=== PATIENT | male | born 1955 | race Caucasian/White ===

== ENCOUNTER 2024-01-18 23:38 | Observation (INO) ==
--- NOTE | 2024-01-18 23:59 | Emergency Department Note ---
History of Present Illness General Chief Complaint: Cardiac Assessment Stated Complaint: TIGHTNESS IN CHEST,IRREGULAR HEARTBEAT Time Seen by Provider: 01/18/24 23:47 History of Present Illness Provider Complaint: chest pain Onset (ago): day(s) 2 Duration: intermittent and improved Onset: during exertion Pain Location: substernal Pain Radiation: none Severity: mild Maximum Pain Intensity: 2 Current Pain Intensity: 0 Quality: + tightness Relieved By: + rest Exacerbated By: + exertion Context: no recent illness, no recent surgery, no recent immobilization, no recent travel, no trauma/injury or no new medications Associated symptoms: + palpitations; no vomiting, no dyspnea, no fever, no cough or no leg swelling Home Medications Medication Instructions Recorded Confirmed Type Calcium (Caltrate) ##0 02/17/06 History Ergocalciferol (Vitamin D Cap) ##0 02/17/06 History Fish Oil (Gleason-3) ##0 02/17/06 History GARLIC PILL ##0 02/17/06 History Allergies Allergy/AdvReac Type Severity Reaction Status Date / Time salicylates Allergy Intermediate UNKNOWN Verified 11/21/10 14:38 azithromycin Allergy Unknown Unknown Verified 03/15/19 14:47 acetaminophen AdvReac Intermediate UNKNOWN Verified 11/21/10 14:38 Past Med/Surg History Problem List (Updated 01/19/24 @ 01:02 by Kye Gallardo MD) Chest pain (Acute) Medical History Symptomatic PVCs Palpitations Hypertension Surgical History No pertinent past surgical history Family History Other Family history non-contributory Social History Smoking Status: Never smoker Preferred Language: Estonian Feels Safe at Home: Yes Physical Exam Vital Signs Vital Signs - 24 hr 01/18/24 23:41 01/18/24 23:50 01/18/24 23:51 Temperature 36.5 C Temperature Source Temporal Artery Scan Pulse Rate 84 80 Pulse Rate [Apical] 78 Respiratory Rate 16 20 20 Respiratory Effort / Characteristics Non-Labored Spontaneous Non-Labored Spontaneous Respiratory Depth Normal Normal Respiratory Pattern Regular Blood Pressure 176/95 H Blood Pressure [Right Arm] 160/102 H Blood Pressure Mean 122 Blood Pressure Mean [Right Arm] 121 Blood Pressure Position Sitting Pulse Oximetry 97 97 98 Oxygen Delivery Method Room Air Room Air Room Air Sepsis Recent Fever Within 48 Hours No Sepsis New/Unexplained Change in Mental Status N/A Sepsis Action Taken by Nursing No Action Required 01/18/24 23:55 01/19/24 00:57 Temperature Temperature Source Pulse Rate 75 Pulse Rate [Apical] 69 Respiratory Rate 16 Respiratory Effort / Characteristics Respiratory Depth Respiratory Pattern Blood Pressure Blood Pressure [Right Arm] 162/91 H Blood Pressure Mean Blood Pressure Mean [Right Arm] 114 Blood Pressure Position Pulse Oximetry 94 Oxygen Delivery Method Room Air Sepsis Recent Fever Within 48 Hours Sepsis New/Unexplained Change in Mental Status Sepsis Action Taken by Nursing Physical Exam GENERAL: oriented to person, place, and time. appears well-developed and well- nourished. HENT: Exam performed. - Head: Normocephalic and atraumatic. EYES: Conjunctivae and EOM are normal. Right eye exhibits no discharge. Left eye exhibits no discharge. No scleral icterus. NECK: Normal range of motion. Neck supple. No JVD present. CV: Normal rate, regular rhythm, normal heart sounds and intact distal pulses. There is no peripheral edema. Palpable radial pulses bue. PULM/CHEST: Effort normal and breath sounds normal. No respiratory distress. No stridor. no wheezes. no rales. ABD: The abdomen is soft. There is no tenderness. NEURO: Motor and sensation grossly intact. SKIN: Skin is warm and dry. He is not diaphoretic. PSYCH: normal mood and affect. Behavior is normal. Judgment and thought content normal. Course Course 2347: The patient was evaluated in room B9. A complete history and physical exam was performed Cardiac monitoring: An order was placed for continuous cardiac monitoring. The monitor shows a rate of 80 with sinus rhythm interpreted by me 0059: Vital signs stable. Labs and imaging are unremarkable. Patient will be admitted for chest pain rule out ACS. Patient mated to the [facility]ist team. Medical Decision Making Laboratory Data Attestation: I reviewed the patient's lab results. 01/18/24 23:52 01/18/24 23:52 Labs: Lab Results 01/18/24 Range/Units 23:52 WBC 6.66 (4.8-10.8) K/ul RBC 5.61 (4.70-6.10) M/uL Hgb 17.1 (14.0-18.0) g/dl Hct 49.8 (42.0-52.0) % MCV 88.8 (80.0-100.0) fL MCH 30.5 (25.0-34.0) pg MCHC 34.3 (32.0-36.0) g/dL RDW Std Deviation 39.8 (36.4-46.3) fL RDW Coeff of Kassandra 12.3 (11.5-14.5) % Plt Count 170 (130-400) K/uL MPV 10.6 (9.4-12.4) fL Immature Gran % (Auto) 0.5 % Neut % (Auto) 38.7 % Lymph % (Auto) 49.8 % [place] % (Auto) 7.8 % Eos % (Auto) 2.7 % Baso % (Auto) 0.5 % Neut # (Auto) 2.58 (1.40-6.50) K/uL Lymph # (Auto) 3.32 (1.20-3.40) K/uL [place] # (Auto) 0.52 (0.11-0.59) K/uL Eos # (Auto) 0.18 (0.00-0.50) K/uL Baso # (Auto) 0.03 (0.00-0.20) K/uL Immature Gran # (Auto) 0.03 (0.01-0.20) K/uL PT 10.7 (9.0-12.0) Seconds INR 1.0 (0.9-1.1) APTT 27 (21-31) Seconds PTT Ratio 1.0 Sodium 140 (136-145) mmol/L Potassium 3.4 L (3.5-5.1) mmol/L Chloride 101 (98-107) mmol/L Carbon Dioxide 27 (21-32) mmol/L Anion Gap 12 H (3-11) BUN 19 (6-23) mg/dl Creatinine 0.94 (0.6-1.4) mg/dl Est Cr Clr Drug Dosing 77.9 ml/min eGFR 87.21 BUN/Creatinine Ratio 20.2 H (10-20) Glucose 120 H (70-99(Fasting)) mg/dl Calcium 9.7 (8.6-10.3) mg/dl Troponin I High Sens 12.8 (0-20) pg/ml Lipase 20 (11-82) U/L Imaging Data Chest x-ray: Attestation: I personally reviewed and interpreted this imaging study as follows: My impression: Chest x-ray negative. Airway clear. No pneumothorax. No consolidation. No cardiomegaly or cephalization.. No free air under the diaphragm. No fractures of the skeletal structures. ECG Data Attestation: I personally reviewed and interpreted this ECG as follows: Additional Comments: EKG #1 at 2348: Sinus rhythm with a rate of 78. AL QRS and QTc intervals within normal limits. No ST elevation or ST depression. Baseline wander and artifact. EKG #2 at 2355: Sinus rhythm with rate of 74. AL QRS and QTc intervals are within normal limits. No ST elevation or ST depression. MDM Narrative 2347: The patient was evaluated in room B9. A complete history and physical exam was performed Cardiac monitoring: An order was placed for continuous cardiac monitoring. The monitor shows a rate of 80 with sinus rhythm interpreted by me 0059: Vital signs stable. Labs and imaging are unremarkable. Patient will be admitted for chest pain rule out ACS. Patient mated to the [facility] hospitalist team. Impression & Plan Chest pain Discharge Plan Visit Data Chief Complaint: Cardiac Assessment Stated Complaint: TIGHTNESS IN CHEST,IRREGULAR HEARTBEAT ED Provider: Kye Gallardo Discharge Problem: Chest pain Patient Disposition: Being Evaluated by Hospitalist Forms Stand Alone Forms: My [facility] Prescriptions Prescriptions: No Action Fish Oil (Gleason-3) 1 EA capsule Qty: 0 GARLIC PILL Qty: 0 Calcium (Caltrate) 600 MG tablet Qty: 0 Ergocalciferol (Vitamin D Cap) 50,000 INTERUNIT capsule Qty: 0 Referrals Referrals: Michele Alfonso DO [Primary Care Provider] - Discharge Problem: Chest pain Qualifiers: Chest pain type: unspecified Qualified Code(s): R07.9 - Chest pain, unspecified
[2024-01-19 00:07] LABS: Basophils # (auto) 0.03 K/uL (0.00-0.20); Basophils % (auto) 0.5 %; Eosinophils # (auto) 0.18 K/uL (0.00-0.50); Eosinophils % (auto) 2.7 %; Hematocrit (blood only) 49.8 % (42.0-52.0); Hemoglobin 17.1 g/dl (14.0-18.0); Immature Granulocytes # (auto) 0.03 K/uL (0.01-0.20); Immature Granulocytes % (auto) 0.5 %; Lymphocytes # (auto) 3.32 K/uL (1.20-3.40); Lymphocytes % (auto) 49.8 %; Mean Corpuscular Hemoglobin 30.5 pg (25.0-34.0); Mean Corpuscular Hgb Conc 34.3 g/dL (32.0-36.0); Mean Corpuscular Volume 88.8 fL (80.0-100.0); Mean Platelet Volume 10.6 fL (9.4-12.4); Monocytes # (auto) 0.52 K/uL (0.11-0.59); Monocytes % (auto) 7.8 %; Neutrophils # (auto) 2.58 K/uL (1.40-6.50); Neutrophils % (auto) 38.7 %; Platelet Count 170 K/uL (130-400); RDW Coefficient of Variation 12.3 % (11.5-14.5); RDW Standard Deviation 39.8 fL (36.4-46.3); Red Blood Count 5.61 M/uL (4.70-6.10); White Blood Count 6.66 K/ul (4.8-10.8)
[2024-01-19 00:24] LABS: BUN Creatinine Ratio 20.2 (10-20); Calcium 9.7 mg/dl (8.6-10.3); Creatinine Clr Calc Pharmacy 77.9 ml/min; Potassium 3.4 mmol/L (3.5-5.1)
[2024-01-19 00:31] LABS: Troponin I High Sensitivity 12.8 pg/ml (0-20)
[2024-01-19 00:45] LABS: Partial Thromboplastin Time 27 Seconds (21-31); Prothrombin Time 10.7 Seconds (9.0-12.0)
--- NOTE | 2024-01-19 04:43 | History & Physical Report ---
Date of Service January 19, 2024 Assessment & Plan (1) Chest pain: Plan: 68-year-old male with past medical history significant for hypertension, symptomatic PVCs, history of prostate cancer comes in because of chest pressure. Patient noticed chest pressure while he was playing golf around 5 PM. No radiation. No shortness. No headache. No dizziness. No blurred vision. No runny nose or sore throat. No cough. No nausea. No abdominal pain. Normal bowel and bladder movements. Patient says he has PVCs and currently he having them and feeling them. Still have some pressure in the chest. He was weird feeling in the chest for last couple of days . Patient states he ambulates 2 to 5 miles every day. Currently hemodynamics are okay. Chest pain Initial workup unremarkable Will keep him n.p.o. Serial cardiac enzymes and echo Telemetry Consult cardiology in a.m. for further recommendations Symptomatic PVCs On metoprolol Follow echo Monitor Hypertension On losartan and metoprolol and amlodipine Will monitor Hypothyroidism On Synthyroid Will follow TSH History of prostate cancer S/p SBRT DVT prophylaxis SCDs Disposition Observation med/telemetry Full code History of Present Illness Chief Complaint: Chest pain Primary Care Provider: Michele Alfonso DO 68-year-old male with past medical history significant for hypertension, symptomatic PVCs, history of prostate cancer comes in because of chest pressure. Patient noticed chest pressure while he was playing golf around 5 PM. No radiation. No shortness. No headache. No dizziness. No blurred vision. No runny nose or sore throat. No cough. No nausea. No abdominal pain. Normal bowel and bladder movements. Patient says he has PVCs and currently he having them and feeling them. Still have some pressure in the chest. He was weird feeling in the chest for last couple of days . Patient states he ambulates 2 to 5 miles every day. Currently hemodynamics are okay. Past medical history. As mentioned above Past surgical history. Colonoscopy. Bilateral cataracts removed. Bilateral inguinal hernia repair. Social history. . No smoking. No alcohol use. No drug use. Family history. Mother had lung cancer. Father had COPD. Paternal grandmother had coronary disease. Liver disease. Maternal grandfather had heart attack. Kidney cancer. Maternal grandmother had heart failure. Allergies Allergy/AdvReac Type Severity Reaction Status Date / Time salicylates Allergy Intermediate UNKNOWN Verified 11/21/10 14:38 azithromycin Allergy Unknown Unknown Verified 03/15/19 14:47 acetaminophen AdvReac Intermediate UNKNOWN Verified 11/21/10 14:38 Home Medications Medication Instructions Recorded Confirmed Type Men's 50 Plus Multivitamin 1 tab PO HS 01/19/24 01/19/24 History amlodipine 5 mg tablet 5 mg PO BID 01/19/24 01/19/24 History levothyroxine 75 mcg tablet 75 mcg PO QAM 01/19/24 01/19/24 History losartan 100 mg tablet 100 mg PO QAM 01/19/24 01/19/24 History metoprolol succinate 100 mg 100 mg PO BID 01/19/24 01/19/24 History tablet,extended release 24 hr Past Med/Surg History Problem List (Updated 01/19/24 @ 01:02 by Kye Gallardo MD) Chest pain (Acute) Medical History Symptomatic PVCs Palpitations Hypertension Surgical History No pertinent past surgical history Family History Other Family history non-contributory Social History Smoking Status: Never smoker Hx Alcohol Use: No Hx Substance Use: No Preferred Language: Mongolian Communication Ability: Effective Beliefs That Will Affect Care: None Current Living Situation: Spouse Feels Safe at Home: Yes Safety Concerns: Feels Safe At This Time Assistive Devices: Glasses Review of Systems Review of Systems: All systems reviewed & are unremarkable except as noted in HPI & below Physical Exam Physical Exam: General- Not in distress Head- atraumatic Eyes- PERRL. ENT- oropharynx clear Neck- supple, no JVD. Lungs- clear to auscultation no wheezing or crackles Heart- regular rate and rhythm; no murmur, no gallop. Abdomen- normal bowel sounds, soft, nontender, no distension Extremities- no pretibial edema, no erythema seen Neuro- alert, oriented PERRL, no facial palsy; no dysarthria; moves extremities Results & Data Results & Data Vital Signs (Past 12 Hours) Vital Signs Temp Pulse Pulse Resp BP BP Pulse Ox 01/19/24 04:13 60 01/19/24 02:00 65 14 149/87 H 97 01/19/24 00:57 69 16 162/91 H 94 01/18/24 23:55 75 01/18/24 23:51 78 20 160/102 H 98 01/18/24 23:50 80 20 97 01/18/24 23:41 36.5 C 84 16 176/95 H 97 O2 Del Method 01/19/24 04:13 01/19/24 02:00 Room Air 01/19/24 00:57 Room Air 01/18/24 23:55 01/18/24 23:51 Room Air 01/18/24 23:50 Room Air 01/18/24 23:41 Room Air Diagnostic Findings Laboratory Results WBC 6.66 K/ul (4.8-10.8) 01/18/24 23:52 RBC 5.61 M/uL (4.70-6.10) 01/18/24 23:52 Hgb 17.1 g/dl (14.0-18.0) 01/18/24 23:52 Hct 49.8 % (42.0-52.0) 01/18/24 23:52 MCV 88.8 fL (80.0-100.0) 01/18/24 23:52 MCH 30.5 pg (25.0-34.0) 01/18/24 23:52 MCHC 34.3 g/dL (32.0-36.0) 01/18/24 23:52 RDW Std Deviation 39.8 fL (36.4-46.3) 01/18/24 23:52 RDW Coeff of Kassandra 12.3 % (11.5-14.5) 01/18/24 23:52 Plt Count 170 K/uL (130-400) 01/18/24 23:52 MPV 10.6 fL (9.4-12.4) 01/18/24 23:52 Immature Gran % (Auto) 0.5 % 01/18/24 23:52 Neut % (Auto) 38.7 % 01/18/24 23:52 Lymph % (Auto) 49.8 % 01/18/24 23:52 [place] % (Auto) 7.8 % 01/18/24 23:52 Eos % (Auto) 2.7 % 01/18/24 23:52 Baso % (Auto) 0.5 % 01/18/24 23:52 Neut # (Auto) 2.58 K/uL (1.40-6.50) 01/18/24 23:52 Lymph # (Auto) 3.32 K/uL (1.20-3.40) 01/18/24 23:52 [place] # (Auto) 0.52 K/uL (0.11-0.59) 01/18/24 23:52 Eos # (Auto) 0.18 K/uL (0.00-0.50) 01/18/24 23:52 Baso # (Auto) 0.03 K/uL (0.00-0.20) 01/18/24 23:52 Immature Gran # (Auto) 0.03 K/uL (0.01-0.20) 01/18/24 23:52 PT 10.7 Seconds (9.0-12.0) 01/18/24 23:52 INR 1.0 (0.9-1.1) 01/18/24 23:52 APTT 27 Seconds (21-31) 01/18/24 23:52 PTT Ratio 1.0 01/18/24 23:52 Sodium 140 mmol/L (136-145) 01/18/24 23:52 Potassium 3.4 mmol/L (3.5-5.1) L 01/18/24 23:52 Chloride 101 mmol/L (98-107) 01/18/24 23:52 Carbon Dioxide 27 mmol/L (21-32) 01/18/24 23:52 Anion Gap 12 (3-11) H 01/18/24 23:52 BUN 19 mg/dl (6-23) 01/18/24 23:52 Creatinine 0.94 mg/dl (0.6-1.4) 01/18/24 23:52 Est Cr Clr Drug Dosing 77.9 ml/min 01/18/24 23:52 eGFR 87.21 01/18/24 23:52 BUN/Creatinine Ratio 20.2 (10-20) H 01/18/24 23:52 Glucose 120 mg/dl (70-99(Fasting)) H 01/18/24 23:52 Calcium 9.7 mg/dl (8.6-10.3) 01/18/24 23:52 Troponin I High Sens 12.8 pg/ml (0-20) 01/18/24 23:52 Lipase 20 U/L (11-82) 01/18/24 23:52 ECG Additional Comments: ECG. Normal sinus rhythm at a rate of 74. Left axis deviation. No significant change was found. QTc 470. Code Status & VTE Plan VTE Prophylaxis Plan VTE Prophylaxis will be ordered: Yes (1) Chest pain Chest pain type: unspecified Qualified Code(s): R07.9 - Chest pain, unspecified
[2024-01-19] MEDS ORDERED: NITROGLYCERIN SL 0.4 MG/TAB TAB SL PRN (05:44)
[2024-01-19] MEDS ORDERED: ACETAMINOPHEN 325 MG TAB PO PRN (05:44)
[2024-01-19] MEDS ORDERED: POLYETHYLENE (MIRALAX) 17 GM PACK PO PRN (05:44)
[2024-01-19] MEDS: LEVOTHYROXINE SODIUM 75 MCG TABLET PO SCH (06:03)
[2024-01-19] MEDS ORDERED: Nursing to Pharmacy Communication SCH (06:15)
[2024-01-19] MEDS: POTASSIUM CHLORIDE CRTAB 20 MEQ TABCR PO STA (06:33)
--- NOTE | 2024-01-19 06:51 | XRay Report ---
XR chest 2V PA/lateral CLINICAL HISTORY: Chest pain, nonspecific TECHNIQUE: 2 views of the chest were obtained. Comparison: Comparison is made to chest radiograph 04/08/2022 FINDINGS: No lines and tubes are seen. The cardiomediastinal silhouette is normal. The lungs are clear. No evid ence of pleural effusion or pneumothorax. IMPRESSION: No acute chest disease. ACT 112: Negative or not required by law. Electronically signed by: Gildardo Ortiz M.D. 01/19/2024 6:50 AM
[2024-01-19 07:31] LABS: Basophils # (auto) 0.03 K/uL (0.00-0.20); Basophils % (auto) 0.6 %; Eosinophils # (auto) 0.13 K/uL (0.00-0.50); Eosinophils % (auto) 2.5 %; Hematocrit (blood only) 43.7 % (42.0-52.0); Hemoglobin 15.6 g/dl (14.0-18.0); Immature Granulocytes # (auto) 0.02 K/uL (0.01-0.20); Immature Granulocytes % (auto) 0.4 %; Lymphocytes # (auto) 1.45 K/uL (1.20-3.40); Lymphocytes % (auto) 27.7 %; Mean Corpuscular Hgb Conc 35.7 g/dL (32.0-36.0); Mean Corpuscular Volume 86.7 fL (80.0-100.0); Mean Platelet Volume 10.5 fL (9.4-12.4); Monocytes % (auto) 11.5 %; Neutrophils # (auto) 3.01 K/uL (1.40-6.50); Neutrophils % (auto) 57.3 %; Platelet Count 147 K/uL (130-400); RDW Coefficient of Variation 12.2 % (11.5-14.5); RDW Standard Deviation 38.7 fL (36.4-46.3); Red Blood Count 5.04 M/uL (4.70-6.10); White Blood Count 5.24 K/ul (4.8-10.8)
[2024-01-19 07:45] LABS: BUN Creatinine Ratio 18.8 (10-20); Calcium 8.8 mg/dl (8.6-10.3); Creatinine Clr Calc Pharmacy 91.5 ml/min; Magnesium 2.2 mg/dl (1.7-2.4); Potassium 3.8 mmol/L (3.5-5.1)
[2024-01-19 07:52] LABS: Troponin I High Sensitivity 20.6 pg/ml (0-20)
--- NOTE | 2024-01-19 08:11 | Electrocardiogram Report ---
Test Reason : Blood Pressure : */* mmHG Vent. Rate : 78 BPM Atrial Rate : 78 BPM P-R Int : 166 ms QRS Dur : 96 ms QT Int : 412 ms P-R-T Axes : 68 -32 47 degrees QTcB Int : 469 ms Normal sinus rhythm Left axis deviation Diffuse Minor Nonspecific T wave abnormality Abnormal ECG When compared with ECG of 07-Apr-2022 20:41, No significant change Confirmed by Tyler Candelario ([id number]) on 01/19/2024 8:10:31 AM Referred By: REFERRED SELF Confirmed By: Tyler Candelario
[2024-01-19] MEDS: METOPROLOL SUCC 50MG EXT REL TAB PO SCH (08:55)
[2024-01-19] MEDS: LOSARTAN POTASSIUM 50 MG TAB PO SCH (08:55)
[2024-01-19] MEDS: amLODIPine BESYLATE 5 MG TAB PO SCH (08:55)
[2024-01-19] MEDS ORDERED: PNEUMOCOCCAL VACCINE (PCV20) 20-VAL CONJ-DIP CRM/PF 0.5 ML SYR IM ONE (09:00)
[2024-01-19] MEDS ORDERED: INFLUENZA VACC TS2024-25(65y+)/PF (IIV3) 0.5mL Syr IM ONE (09:00)
--- OUTSIDE RECORDS SUMMARY | 2024-01-19 09:51 | External Medical Summary | Summary of Care ---
Author Name Unknown Organization [facility] Address [address] [place] [address] Phone [phone] Care Team Providers Care Wireless Manager Name Role Phone Michele Alfonso DO Primary Care Provider Reason for Visit * Reason Comments Return Visit Pt here for 6 mo ret urn, has some concerns today. Encounter Details Date Type Department Care Team (Late st Contact Info) Description 11/16/2023 10:20 AM EDT Office Visit Family Practice [facility] [address] [place] [address] Michele Alfonso DO [address] [facility] [address] HTN, goal below 130/80*; Mixed dyslipidemia; Prediabetes; Acquired hypothyroidism; Change in stool; History of prostate cancer Allergies Active Allergy Reactions Criticality Noted Date Comments Azithromycin 03/27/1999 rash Sulfamethoxazole-Trimethoprim Rash Medium 2014 Rash on day #2 documented as of this encounter (statuses as of 11/16/2023) Medications Medication Sig Dispensed Refills Start Date End Date Status Multi Vitamin Daily Oral Tablet Take by mouth 1 Tablet daily . Active Losartan Potassium 100 MG Oral Tablet (Cozaar) Take 1 Tablet by mouth in the morning. 90 Tablet 3 10/25/2023 Active amLODIPine Besylate 5 MG Oral Tablet (Norvasc) TAKE 1 TABLET by mouth TWICE A DAY 180 Tablet 1 10/25/2023 Active Metoprolol Succinate ER 100 MG Oral Tablet Extended Release 24 Hour (toPROL XL)Indications:HTN, goal below 140/90 TAKE 1 TABLET IN THE MORNING AND 1 TABLET BEFORE BEDTIME 180 Tablet 1 10/25/2023 Active Levothyroxine Sodium 75 MCG Oral Tablet (Levoxyl)Indication s:Mixed dyslipidemia,Acquir ed hypothyroidism Take 1 Tablet by mouth in the morning. (at least 30 min prior to breakfast or other meds). 30 Tablet 11 11/16/2023 Active Levothyroxine Sodium 50 MCG Oral Tablet (Levoxyl)Indication s:Subclinical hypothyroidism TAKE 1 TABLET by mouth DAILY FIRST THING IN THE MORNING AT LEAST 30 MINUTES PRIOR TO BREAKFAST OR OTHER MEDS 90 Tablet 1 10/25/2023 11/16/19 24 Discontinued documented as of this encounter (statuses as of 11/16/2023) Active Problems Problem Noted Date Diagnosed Date Monoallelic mutation of PALB2 gene 02/12/2022 Overview: pathogenic PALB2 gene variant (c.3116del p.([id number]*2)) detected via [employer]. Increased risk for PALB2-associated cancer risk (breast, pancreatic cancers). Please click the link below into your browser for a brief summary of current clinical management recommendations for PALB2 - associated cancer risk PALB2 Symptomatic PVCs 04/21/2021 HTN, goal below 130/80 12/24/2016 History of prostate cancer 05/15/2014 documented as of this encounter (statuses as of 11/16/2023) Resolved Problems Problem Noted Date Diagnosed Date Resolved Date Mixed dyslipidemia 11/13/2020 2 Piriformis syndrome of left side 11/13/2020 04/21/2021 Prediabetes 05/18/2017 04/21/2021 Overview: Per Prediabetes protocol #1 Elevated prostate specific antigen (PSA) 05/15/2014 12/24/2016 Hirsutism 06/29/2012 12/24/2016 Brow ptosis 10/27/2011 12/24/2016 Dermatochalasis 10/27/2011 12/24/2016 Retinal tear 06/30/2011 12/24/2016 Dermatitis 05/20/2010 12/24/2016 Acute pharyngitis 05/20/2010 10/16/2013 ADVANCE DIRECTIVE INFORMATION 09/30/2005 01/03/2018 Overview: Pt will supply copy of one he has Hyperplastic ascending colon polyp 01/30/2004 12/24/2016 BENIGN HYPERTENSION 12/25/19 17 documented as of this encounter (statuses as of 11/16/2023) Immunizations Name Administration Dates Next Due COVID-19 mRNA, LNP-s, No Pre serve, 2-Dose Series (I3 Precision) 02/11/2021,06/15/2020,05/20/2020 COVID-19, LNP-s, No Preserve , Corey-sucrose, Ages 12+ (Pfizer) 09/05/2021 COVID-19, MRNA-LNP, 23-24, P F, 30 MCG/0.3 mL, 12 YRS AND ABOVE, IM (indeni-Comirnat) 03/11/2023 H1N1 2009 Influenza, IM 03/05/2009 PPD 02/19/2014 Pneumococcal Conjugate Vacc, 13 Valent (Prevnar) 12/26/2018 Pneumococcal Polysaccharide PPV23 (Pneumovax) 01/27/2020 Seasonal Influenza Virus Vac cine, Unspecified Formulation 12/28/2019 Seasonal Influenza, PF, 6 M & above, IM , (FluLaval or Fluzone) 12/24/2017,12/24/2016 Seasonal Influenza, Quadriva lent Hd (Fluzone Hd) 02/03/2023,12/31/2021,12/11/2020 Seasonal Influenza, Quadriva lent, No Preserve, IM 01/13/2015 Seasonal Influenza, Split, I IV3, With Preserve, Inj 12/19/2015,12/18/2013,01/03/2013,02/01 Seasonal Influenza, Trivalen t, Adjuvanted, 65+ yrs 12/26/2018 TDAP (age 10 and older)(Boostrix) 11/13/2020 TDAP, Age 7 and older, IM (Adacel) 10/01/2010 Varicella Zoster Vaccine (Adult) 10/16/2013 Zoster Vaccine Recombinant (Shingrix) 11/28/2019 ,07/19/2019,05/31/2019 documented as of this encounter Social History Tobacco Use Types Packs/Day Years Used Date Smoking Tobacco: Never Smokeless Tobacco: Never Tobacco Cessation:Counseling Given: Not Answered Alcohol Use Standard Drinks/Week Comments No 0 (1 standard drink = 0.6 oz pur e alcohol) PHQ-2 Answer Date Recorded PHQ Adult Total Score 0 02/03/2023 Hunger Vital Sign Answer Date Recorded Within the past 12 months, y ou worried that your food would run out before you got the money to buy more. Never true 11/02/19 24 Within the past 12 months, t he food you bought just didn't last and you didn't have money to get more. Never true 11/02/2023 Childcare Answer Date Recorded Do you feel overwhelmed with taking care of a child, family member or friend? No 11/02/2023 Does your family need help f inding childcare? (Household - for ages 0-17 years) Not on file 11/02/2023 Clothing Answer Date Recorded Have you been unable to get clothing when it was really needed? No 11/02/2023 Is your family able to get c lothes or diapers when needed? (Household - for ages 0-17 years) Not on file 11/02/2023 Personal Safety Answer Date Recorded Do you feel unsafe or have concerns for your saf ety? No 11/02/2023 Do you have concerns for you r family's safety? (Household - for ages 0-17 years) Not on file 11/02/2023 Utilities Answer Date Recorded Do you have trouble paying y our heating, water, or electric bill? No 11/02/2023 Is your family able to pay t he heat, water, or electric bill? (Household - for ages 0-17 years) Not on file 11/02/2023 Does your family have access to good internet? (Household - for ages 0-17 years) Not on file 11/02/2023 Employment Status Answer Date Recorded Are you unemployed or without regular income? No 11/02/2023 Does the household have a re gular source of income? (Household - for ages 0-17 years) Not on file 11/02/2023 Social Connections Answer Date Recorded How often do you feel lonely or isolated from th ose around you? Never 11/02/2023 Financial Resource Strain Answer Date R ecorded Do you have any trouble payi ng for your medications, or do you think you might in the future? No 11/02/2023 Does your family have troubl e paying for medicine? (Household - for ages 0-17 years) Not on file 11/02/2023 Transportation Needs Answer Date Record ed Do you have trouble getting a ride to medical visits or work? (Adult - for ages 18 years and over) Not on file 11/02/2023 Does your family have a hard time getting a ride to doctors visits? (Household - for ages 0-17 years) Not on file 11/02/2023 Has lack of transportation k ept you from medical appointments, meetings, work, or from getting things needed for daily living? Check all that apply. No 11/02/2023 Do you (or your family) have trouble finding or paying for a ride (transportation)? (Household - for ages 0-17 years) Not on file 11/02/2023 Housing Stability Answer Date Recorded Do you currently live in a s helter or have no steady place to sleep at night? No 11/02/2023 Do you think you are at risk of becoming homeless? (Adult - for ages 18 years and over) Not on file 11/02/2023 Does your family worry about paying for your home or becoming homeless? (Household - for ages 0-17 years) Not on file 0 11/02/2023 Are you homeless or worried that you might be in the future? No 11/02/2023 Are you (or your family) eamon eless or worried that you might be in the future? (Household - for ages 0-17 years) Not on file Food Insecurity Answer Date Recorded Do you need food for this week? No 11/02/2023 Are you able to get enough f ood for your family? (Household - for ages 0-17 years) Not on file 11/02/2023 Does your family need food t his week? (Household - for ages 0-17 years) Not on file 11/02/2023 Do you always have enough fo od for your family? (Household - for ages 0-17 years) Not on file 11/02/2023 Sex and Gender Information Value Date Recorded Sex Assigned at Male 09/11/2019 10:29 AM EDT Gender Identity Male 09/11/2019 10:29 AM EDT Sexual Orientation Straight 09/11/2019 10 :29 AM EDT Job Start Date Occupation Industry Not on file Not on file Not on file documented as of this encounter Last Filed Vital Signs Vital Sign Reading Time Taken Comments Blood Pressure 124/72 11/16/2023 10:13 AM EDT Pulse 61 11/16/2023 10:13 AM EDT Temperature 35.9 C (96.6 F) 11/16/2023 10:13 AM E DT Respiratory Rate - - Oxygen Saturation 98% 11/16/2023 10:13 AM EDT Inhaled Oxygen Concentration - - Weight 83.2 kg (183 lb 8 oz) 11/16/2023 10:13 AM EDT Height - - Body Mass Index 24.72 02/03/2023 12:45 PM EDT documented in this encounter Progress Notes * Michele Alfonso, - 11/16/2023 10:16 AM EDT Images from the original note were not included. Assessment and Plan HTN, goal below 130/80 - COMPREHENSIVE METABOLIC PANEL; Future - ALBUMIN / CREATININE RATIO, URINE; Future Mixed dyslipidemia - Levothyroxine Sodium 75 MCG Oral Tablet (Levoxyl); Take 1 Tablet by mouth in the morning. (at least 30 min prior to breakfast or other meds). - LIPID PANEL WITH DIRECT LDL IF TG IS HIGH; Future Prediabetes - HEMOGLOBIN A1C; Future Acquired hypothyroidism Will trial dose increase to see if We can normalize TSH while not going over - Levothyroxine Sodium 75 MCG Oral Tablet (Levoxyl); Take 1 Tablet by mouth in the morning. (at least 30 min prior to breakfast or other meds). - TSH WITH FREE T4 IF INDICATED; Future Change in stool Change in stool appearance/shape, more flat Will get FOBT in advance of c-scope to ensure ok to wait for c-scope - FECAL OCCULT BLOOD, EIA; Future History of prostate cancer - PSA; Future History of Present Illness Jacques Melendez III is a 68 year old male that presents for Return Visit (Pt here for 6 mo return, has some concerns today. ) BMs became different recently , longer, narrower, softer He began to follow a more stringent diet - maybe changed the stool? More PVCs (sensed) lately Labs are back for review Had some mild chest pressure on vacation, but not connected with exertion He remains active exercising but n o chest pain with exertion Physical Exam Vitals: 11/16/23 1013 Temp: 35.9 C (96.6 F) Pulse: 61 SpO2: 98% BP: 124/72 Physical Exam Vitals and nursing note reviewed. Constitutional: Appearance: Normal appearance. HENT: Head: Normocephalic and atraumatic. Right Ear: Tympanic membrane, ear canal and external ear normal. There is no impacted cerumen. Left Ear: Tympanic membrane, ear canal and external ear normal. There is no impacted cerumen. Nose: Nose normal. Mouth/Throat: Mouth: Mucous membranes are moist. Pharynx: Oropharynx is clear. Eyes: Extraocular Movements: Extraocular movements intact. Conjunctiva/sclera: Conjunctivae normal. Pupils: Pupils are equal, round, and reactive to light. Cardiovascular: Rate and Rhythm: Normal rate and regular rhythm. Heart sounds: Normal heart sounds. Pulmonary: Effort: Pulmonary effort is normal. Breath sounds: Normal breath sounds. Abdominal: General: Abdomen is flat. Palpations: Abdomen is soft. Musculoskeletal: General: Normal range of motion. Cervical back: Normal range of motion and neck supple. Lymphadenopathy: Cervical: No cervical adenopathy. Skin: General: Skin is warm and dry. Neurological: General: No focal deficit present. Mental Status: He is alert and oriented to person, place, and time. Wrap-Up Follow Up: Return in about 6 months (around 05/18/2024). Time: Total time today was 45 minutes excluding any time spent in the performance of separately billed services. documented in this encounter Nursing Notes * Kaci Mina LPN - 11/16/2023 10:15 AM EDT The patient has been properly identified by confirmation of name and date of . Chief Complaint Patient presents with Return Visit Pt here for 6 mo return, has some concerns today. documented in this encounter Plan of Treatment Upcoming Encounters Date Type Department Care Team (Latest Contact Info) Description 02/07/2024 12:30 PM EST Nurse Only Ancillary [facility] [address] [place] [id number] Umair, Nurse Annual Wellness [facility] [address] [place] [address] 03/07/2024 2:30 PM EST Hospital Encounter [facility]O [facility], Endoscopy Room [facility] [address] [place] [id number] Italia You MD [address] [place] [address] 03/07/2024 2:30 PM EST - 03/07/2024 3:00 PM EST Surgery ENDO [facility], Endoscopy Room [facility] [address] [place] [phone] Italia You MD [address] [place] [address] COLONOSCOPY FLEXIBLE PROXIMAL DIAGNOSTIC 05/18/2024 2:00 PM EST Office Visit [facility] [address] [place] [address] Myra Kellogg CRNP [address] [place] [address] 11/28/2024 10:20 AM EDT Office Visit [facility] [address] [place] [address] Michele Alfonso DO [address] [place] [address] Scheduled Orders Name Type Priority Associated Diagnoses Orde r Schedule FECAL OCCULT BLOOD, EIA Lab Routine Change in stool Expected: 11/16/2023 (Approximate), Expires: 11/15/2024 TSH WITH FREE T4 IF INDICATED Lab Routine Acquired hypothyroidism Expected: 05/14/2024 (Approximate), Expires: 11/15/2024 COMPREHENSIVE METABOLIC PANEL Lab Routine HTN, goal below 130/80 Expected: 05/14/2024 (Approximate), Expires: 11/15/2024 HEMOGLOBIN A1C Lab Routine Prediabetes Expected: 05/14/2024 (Approximate), Expires: 11/15/2024 ALBUMIN / CREATININE RATIO, URINE Lab Routine HTN, goal below 130/80 Expected: 05/14/2024 (Approximate), Expires: 11/15/2024 LIPID PANEL WITH DIRECT LDL IF TG IS HIGH Lab Routine Mixed dyslipidemia Expected: 05/14/2024 (Approximate), Expires: 11/15/2024 PSA Lab Routine History of prostate cancer Expected: 11/16/2023 (Approximate), Expires: 11/15/2024 Scheduled Procedures Name Priority Associated Diagnoses Date/Ti me COLONOSCOPY FLEXIBLE PROXIMAL DIAGNOSTIC Recall History of colon polyps 03/07/2024 2:30 PM EST Health Maintenance Due Date Last Done Comments Cologuard 1998 Fecal Occult Blood Test 1998 Sigmoidoscopy 1998 COVID-19 Vaccine ( season) 2023 03/11/2023, 09/05/2021, 02/11/2021, Additional history exists Influenza Vaccine (FLU shot) (#1) 2023 02/03/2023, 12/31/2021, 12/11/2020, Additional history exists Adult Wellness Visit 02/04/2024 02/03/2023, 12/31/2021, 09/16/2020 Depression Screening 02/04/2024 02/03/2023 Colonoscopy 03/07/2024 03/07/2019, 1206/2018, 01/16/2014, Additional history exists Colorectal Cancer Screening 03/07/2024 GFR 03/25/2024 03/25/2023, 09/04, 03/10/2022, Additional history exists TSH 11/02/2024 11/03/2023, 03/06, 09/24/2022, Additional history exists Albumin/Creatinine Ratio 03/25/2026 023, 12/31/2021, 11/13/2020, Additional history exists Lipid Panel 11/02/2028 11/03/2023, 03/06, 09/24/2022, Additional history exists DTaP,Tdap,and Td Vaccines (3 - Td or Tdap) 11/13/2030 11/13/2020, 10/01/2010, 11/27/2004, Additional history exists RETIRED - COLONOSCOPY-EVERY 5 YRS AGES 18-100 Discontinued 03/07/2019, 03/07/2019, 01/16/2014, Additional history exists Zoster Vaccines Completed 11/28/2019, 07/04, 05/31/2019, Additional history exists Pneumococcal Vaccine: 65+ Years Completed 01/27/2020, 12/26/2018 HPV (Gardasil) Vaccine Aged Out No lo nger eligible based on patient's age to complete this topic Hepatitis B Vaccine Aged Out No longe r eligible based on patient's age to complete this topic MENINGOCOCCAL (MENACTRA/MENVEO) Aged Out No longer eligible based on patient's age to complete this topic documented as of this encounter Medical Devices Implanted Type Area Conditioning Coach Device Identifier Shelf Expiration Date Model / Serial / Lot Lens Intraoc 17.0 - [id number] - [id number] Implanted:Qty: 1 on 12/07/2019 by Larry Blackwell MD at OR [facility] Left: Eye [employer] 02/03/2024 [id number] / [id number] / [employer] Implanted:Qty: 1 on 12/14/2019 by Larry Blackwell MD at OR [facility] Right: Eye [employer] 02/03/2024 [id number] / / [id number] documented as of this encounter Visit Diagnoses Diagnosis HTN, goal below 130/80- Primary Unspecified essential hypertension Mixed dyslipidemia Mixed hyperlipidemia Prediabetes Other abnormal glucose Acquired hypothyroidism Unspecified hypothyroidism Change in stool Nonspecific abnormal finding in stool contents History of prostate cancer Personal history of malignant neoplasm of prostate History of colon polyps Personal history of colonic polyps documented in this encounter Care Teams Wireless Manager Relationship Specialty Start Date End Date Michele Alfonso DO [address] [facility] [place] [address] PCP - General Family Medicine 11/13/20 documented as of this encounter
--- OUTSIDE RECORDS SUMMARY | 2024-01-19 09:51 | External Medical Summary | Summary of Care ---
Author Name Unknown Organization [facility] Address [address] [place] [address] Phone [phone] Care Team Providers Care Lead Sql Developer Name Role Phone Michele Alfonso Primary Care Provider Reason for Visit * Reason Onset Date Comments Medication Refill 10/24/2023 Encounter Details Date Type Department Care Team (Late st Contact Info) Description 10/24/2023 Refill Cardiology, [facility] [address] [facility] [place] [address] Halina Sampson, 132 [facility] [place] [address] Allergies Active Allergy Reactions Criticality Noted Date Comments Azithromycin 03/27/1999 rash Sulfamethoxazole-Trimethoprim Rash Medium 2014 Rash on day #2 documented as of this encounter (statuses as of 10/25/2023) Medications Medication Sig Dispensed Refills Start Date [...] 180 Tablet 1 10/25/2023 Active Levothyroxine Sodium 50 MCG Oral Tablet (Levoxyl)Indications :Subclinical hypothyroidism TAKE 1 TABLET by mouth DAILY FIRST THING IN THE MORNING AT LEAST 30 MINUTES PRIOR TO BREAKFAST OR OTHER MEDS 90 Tablet 1 10/25/2023 Active Losartan Potassium 100 MG Oral Tablet (Cozaar) Take 1 Tablet by mouth in the morning. 90 Tablet 3 04/07/2023 4 Discontinue d(Refill) documented as of this encounter (statuses as of 10/25/2023) Active Problems Problem Noted Date Diagnosed Date Monoallelic mutation of PALB2 gene 02/12/2022 Overview: pathogenic PALB2 gene variant (c.3116del p.(J5951Ciq*2)) detected via LetMeGo. Increased risk for PALB2-associated cancer risk (breast, pancreatic cancers). Please click the link below into your browser for a brief summary of current clinical management recommendations for PALB2 - associated cancer risk PALB2 Symptomatic PVCs 04/21/2021 HTN, goal below 130/80 12/24/2016 History of prostate cancer 05/15/2014 documented as of this encounter (statuses as of 10/25/2023) Resolved Problems Problem Noted Date Diagnosed Date [...] as of this encounter (statuses as of 10/25/2023) Immunizations Name Administration Dates Next Due COVID-19 mRNA, LNP-s, No Pre serve, 2-Dose Series (P21) 02/11/2021,06/15/2020,05/20/2020 COVID-19, LNP-s, No Preserve , Corey-sucrose, Ages 12+ (P21) 09/05/2021 COVID-19, MRNA-LNP, 23-24, P F, 30 MCG/0.3 mL, 12 YRS AND ABOVE, IM (PFIZER-Comirnaty) 03/11/2023 H1N1 2009 Influenza, IM 03/05/2009 PPD [...] Date Smoking Tobacco: Never Smokeless Tobacco: Never Alcohol Use Standard Drinks/Week Comments No 0 (1 standard drink = 0.6 oz pur e alcohol) PHQ-2 Answer Date Recorded PHQ Adult Total Score 0 02/03/2023 Hunger Vital Sign Answer Date Recorded Within the past 12 months, y ou worried that your food would run out before you got the money to buy more. Never true 09/12/19 23 Within the past 12 months, t he food you bought just didn't last and you didn't have money to get more. Never true 09/11/2022 Utilities Answer Date Recorded Do you have trouble paying y our heating, water, or electric bill? (Adult - for ages 18 years and over) Not on file 09/21/2023 Is your family able to pay t he heat, water, or electric bill? (Household - for ages 0-17 years) Not on file 09/21/2023 Does your family have access to good internet? (Household - for ages 0-17 years) Not on file 09/21/2023 Social Connections Answer Date Recorded How often do you feel lonely or isolated from those around you? (Adult - for ages 18 years and over) Not on file 09/21/2023 Sex and Gender Information Value Date Recorded Sex Assigned at Male 09/11/2019 10:29 AM EDT Gender Identity Male 09/11/2019 10:29 AM EDT Sexual Orientation Straight 09/11/2019 10 :29 AM EDT Job Start Date Occupation Industry Not on file Not on file Not on file documented as of this encounter Miscellaneous Notes * Telephone Encounter - Halina Sampson DO - 10/25/2023 2:55 PM EDTSigned Prescriptions: Disp Refills Losartan Potassium 100 MG Oral Tablet (Coz*90 Tab*3 Sig: Take 1 Tablet by mouth in the morning. Authorizing Provider: HALINA SAMPSON * Telephone Encounter - Jacqueline Hernandez LPN - 10/25/2023 1:10 PM EDTPending Prescriptions: Disp Refills Losartan Potassium 100 MG Oral Tablet (Coz*90 Tab*3 Sig: Take 1 Tablet by mouth in the morning. * Telephone Encounter - Jacqueline Hernandez LPN - 10/25/2023 1:10 PM EDT Pending Prescriptions: Disp Refills Losartan Potassium 100 MG Oral Tablet (Co*90 Tab*3 Sig: Take 1 Tablet by mouth in the morning. documented in this encounter Plan of Treatment Upcoming Encounters Date Type Department Care Team (Latest Contact Info) Description 11/16/2023 10:20 AM EDT Office Visit Family Practice [facility] [address] [place] [address] Michele Alfonso DO [address] [place] [address] 02/07/2024 12:30 PM EST Nurse Only Ancillary [facility] 132 [facility] [place] [address] [facility], Nurse [facility] [address] [facility] [place] [address] 03/07/2024 2:30 PM EST Hospital Encounter ENDO [facility], Endoscopy Room [facility] [address] [place] [phone] Italia You MD 310 [facility] [address] [place] [id number] 03/07/2024 2:30 PM EST - 03/07/2024 3:00 PM EST Surgery ENDO [facility], Endoscopy Room [facility] [address] [place] [phone] Italia You MD [address] [place] [address] COLONOSCOPY FLEXIBLE PROXIMAL DIAGNOSTIC Scheduled Procedures Name Priority Associated Diagnoses Date/Ti me COLONOSCOPY FLEXIBLE PROXIMAL DIAGNOSTIC Recall History of colon polyps 03/07/2024 2:30 PM EST Health Maintenance Due Date Last Done Comments Cologuard 1998 Fecal Occult Blood Test 1998 Sigmoidoscopy 1998 COVID-19 Vaccine ( season) 2023 03/11/2023, 09/05/2021, 02/11/2021, Additional history exists Influenza Vaccine (FLU shot) (#1) 2023 02/03/2023, 12/31/2021, 12/11/2020, Additional history exists Depression Screening 02/04/2024 02/03/2023 Colonoscopy 03/07/2024 03/07/2019, 06/2018, 01/16/2014, Additional history exists Colorectal Cancer Screening 03/07/2024 GFR 03/25/2024 03/25/2023, 09/04, 03/10/2022, Additional history exists TSH 03/25/2024 03/25/2023, 09/04, 07/13/2022, Additional history exists Albumin/Creatinine Ratio 03/25/2026 023, 12/31/2021, 11/13/2020, Additional history exists Lipid Panel 03/25/2028 03/25/2023, 09/04, 03/10/2022, Additional history exists DTaP,Tdap,and Td Vaccines (3 - Td or Tdap) 11/13/2030 11/13/2020, 10/01/2010, 11/27/2004, Additional history exists RETIRED - COLONOSCOPY-EVERY 5 YRS AGES 18-100 Discontinued 03/07/2019, 03/07/2019, 01/16/2014, Additional history exists Zoster Vaccines Completed 11/28/2019, 07/04, 05/31/2019, Additional history exists Pneumococcal Vaccine: 65+ Years Completed 01/27/2020, 12/26/2018 *BASELINE EKG FOR HTN Completed 02/18/2021 , 01/29/2020, 01/11/2020, Additional history exists HPV (Gardasil) Vaccine Aged Out No lo nger eligible based on patient's age to complete this topic Hepatitis B Vaccine Aged Out No longe r eligible based on patient's age to complete this topic MENINGOCOCCAL (MENACTRA/MENVEO) Aged Out No longer eligible based on patient's age to complete this topic documented as of this encounter Medical Devices Implanted Type Area Computer Technical Support Specialist Device Identifier Shelf Expiration Date Model / Serial / Lot Lens Intraoc 17.0 - [id number] - [id number] Implanted:Qty: 1 on 12/07/2019 by Larry Blackwell MD at OR [facility] Left: Eye BAUSCH & LOMB 02/03/2024 [id number] / [id number] / Sofport Implanted:Qty: 1 on 12/14/2019 by Larry Blackwell MD at OR [facility] Right: Eye BAUSCH & LOMB 02/03/2024 [id number] / / [id number] documented as of this encounter Care Teams Lead Sql Developer Relationship Specialty Start Date End Date Michele Alfonso DO [address] [place] [address] PCP - General Family Medicine 11/13/20 documented as of this encounter
--- OUTSIDE RECORDS SUMMARY | 2024-01-19 09:51 | External Medical Summary | Summary of Care ---
Author Name Unknown Organization [facility] Address [address] [place] [address] Phone [phone] Care Team Providers Care Microarray Analyst Name Role Phone Michele Alfonso DO Primary Care Provider Reason for Visit * Reason Comments Return Visit Pt here for 6 mo ret urn, has some concerns today. Encounter Details Date Type Department Care Team (Late st Contact Info) Description 11/16/2023 10:20 AM EDT Office Visit Family Practice [facility] [address] [facility] [address] Michele [facility]fonso DO [address] [facility] [address] HTN, goal below 130/80*; Mixed dyslipidemia; Prediabetes; [...] 02/12/2022 Overview: pathogenic PALB2 gene variant (c.3116del p.(Y3940Bmk*2)) detected via [employer]. Increased risk for PALB2-associated cancer risk (breast, [...] mRNA, LNP-s, No Pre serve, 2-Dose Series ([place]k) 02/11/2021,06/15/2020,05/20/2020 COVID-19, LNP-s, No Preserve , Corey-sucrose, Ages 12+ (Pfizer) 09/05/2021 COVID-19, MRNA-LNP, 23-24, P F, 30 MCG/0.3 mL, 12 YRS AND ABOVE, IM (Zenter-Comirnat) 03/11/2023 H1N1 2009 Influenza, IM 03/05/2009 PPD [...] 02/07/2024 12:30 PM EST Nurse Only Ancillary [facility] [address] [place] [address] [place], Nurse Annual Wellness [facility] [address] [place] [address] 03/07/2024 2:30 PM EST Hospital Encounter ENDO [facility], Endoscopy Room [facility] [address] [place] [phone] Italia You MD [address] [place] [address] 03/07/2024 2:30 PM EST - 03/07/2024 3:00 PM EST Surgery ENDO OSSC, Endoscopy Room [facility] [address] [place] [phone] Italia You MD [address] [place] [address] COLONOSCOPY FLEXIBLE PROXIMAL DIAGNOSTIC 05/18/2024 2:00 PM EST Office Visit [facility] [address] [place] [address] Myra Kellogg CRNP [address] [place] [address] 11/28/2024 10:20 AM EDT Office Visit [facility] [address] [place] [address] Michele Alfonso DO [address] [place] [address] Scheduled Orders Name Type Priority Associated Diagnoses [...] this encounter Medical Devices Implanted Type Area Seam Checker Device Identifier Shelf Expiration Date Model / Serial / Lot Lens Intraoc 17.0 - [id number] - [id number] Implanted:Qty: 1 on 12/07/2019 by Larry Blackwell MD at OR [facility] Left: Eye BAUSCH & LOMB 02/03/2024 [id number] / [id number] / Sofport Implanted:Qty: 1 on 12/14/2019 by Larry Blackwell MD at OR [facility] Right: Eye BAUSCH & LOMB 02/03/2024 [id number] / / [id number] documented as of this encounter Visit Diagnoses Diagnosis HTN, goal below 130/80- Primary Unspecified essential hypertension Mixed dyslipidemia Mixed hyperlipidemia Prediabetes Other abnormal glucose Acquired hypothyroidism Unspecified hypothyroidism Change in stool Nonspecific abnormal finding in stool contents History of prostate cancer Personal history of malignant neoplasm of prostate History of colon polyps Personal history of colonic polyps documented in this encounter Care Teams Microarray Analyst Relationship Specialty Start Date End Date Michele Alfonso DO 132 [facility] [place] [address] PCP - General Family Medicine 11/13/20 documented as of this encounter
--- OUTSIDE RECORDS SUMMARY | 2024-01-19 09:51 | External Medical Summary ---
Author Name Unknown Address Unknown Organization [id number]:LABORATORY C - [address] [place] [address] Laboratory Report Ordering Provider Test Date Status DAVID CASEY 11/03/2023 09:34:30 Final Observation Date Value Abnormality Reference (Units ) Status T4, Free 11/03/2023 09:34:30 1.2 0.9-1.7 (n g/dL) Final Performing Location [facility] - [address] [place] [address]
--- OUTSIDE RECORDS SUMMARY | 2024-01-19 09:51 | External Medical Summary | Summary of Care ---
Author Name Unknown Organization [facility] Address [address] [place] [address] Phone [phone] Care Team Providers Care Top Spotter Name Role Phone Michele Alfonso DO Primary Care Provider Reason for Visit * Reason Comments Return Visit Pt here for 6 mo ret urn, has some concerns today. Encounter Details Date Type Department Care Team (Late st Contact Info) Description 11/16/2023 10:20 AM EDT Office Visit Family Practice [facility] [address] [facility] [place] [address] [facility] [address] HTN, goal below 130/80*; Mixed dyslipidemia; Prediabetes; [...] 02/12/2022 Overview: pathogenic PALB2 gene variant (c.3116del p.(L2208Lle*2)) detected via hopscout. Increased risk for PALB2-associated cancer risk (breast, [...] mRNA, LNP-s, No Pre serve, 2-Dose Series (Physitrack) 02/11/2021,06/15/2020,05/20/2020 COVID-19, LNP-s, No Preserve , Corey-sucrose, Ages 12+ (Pfizer) 09/05/2021 COVID-19, MRNA-LNP, 23-24, P F, 30 MCG/0.3 mL, 12 YRS AND ABOVE, IM ([place] [employer]-Comirnat) 03/11/2023 H1N1 2009 Influenza, IM 03/05/2009 PPD 02/19/2014 Pneumococcal Conjugate Vacc, 13 Valent (Prevnar) 12/26/2018 Pneumococcal Polysaccharide PPV23 (Pneumovax) 01/27/2020 Seasonal Influenza Virus Vac cine, Unspecified Formulation 12/28/2019,01/17/2003 Seasonal Influenza, PF, 6 M & above, IM , (FluLaval or Fluzone) 12/24/2017,12/24/2016 Seasonal Influenza, Quadriva lent Hd (Fluzone Hd) 02/03/2023,12/31/2021,12/11/2020 Seasonal Influenza, Quadriva lent, No Preserve, IM 01/13/2015 Seasonal Influenza, Split, I IV3, With Preserve, Inj 12/19/2015,12/18/2013,01/03/2013,02/01 Seasonal Influenza, Trivalen t, Adjuvanted, 65+ yrs 12/26/2018 TD - Tetanus/Diptheria (ADULT) 04/05/1993 TD, Preservative Free 11/27/2004 TDAP (age 10 and older)(Boostrix) 11/13/2020 TDAP, [...] 02/07/2024 12:30 PM EST Nurse Only Ancillary [facility] [address] [place] [address] Umair, Nurse Annual Wellness [facility] [address] [place] [address] 03/07/2024 2:30 PM EST Hospital Encounter ENDO OSS[facility], Endoscopy Room [facility] [address] [place] [phone] Italia You MD [address] [place] [address] 03/07/2024 2:30 PM EST - 03/07/2024 3:00 PM EST Surgery ENDO O[facility], Endoscopy Room [facility] [address] [place] [phone] Italia You MD [address] [place] [address] COLONOSCOPY FLEXIBLE PROXIMAL DIAGNOSTIC 05/18/2024 2:00 PM EST Office Visit [facility] [address] [place] [address] Myra Kellogg CRNP [address] [place] [address] 11/28/2024 10:20 AM EDT Office Visit [facility] [address] [place] [address] Michele Alfonso DO [address] [place] [address] Pending Results Name Type Priority Associated Diagnoses Date /Time FECAL OCCULT BLOOD, EIA Lab Routine Change in stool 11/16/2023 4:57 PM EDT Scheduled Orders Name Type Priority Associated Diagnoses [...] this encounter Medical Devices Implanted Type Area Pet Feeder Device Identifier Shelf Expiration Date Model / Serial / Lot Lens Intraoc 17.0 - [id number] - [id number] Implanted:Qty: 1 on 12/07/2019 by Larry Blackwell MD at OR [facility] Left: Eye BAUSCH & LOMB 02/03/2024 [id number] / [id number] / Sofport Implanted:Qty: 1 on 12/14/2019 by Larry Blackwell MD at OR [facility] Right: Eye BAUSCH & LOMB 02/03/2024 [id number] / / [id number] documented as of this encounter Visit Diagnoses Diagnosis HTN, goal below 130/80- Primary Unspecified essential hypertension Mixed dyslipidemia Mixed hyperlipidemia Prediabetes Other abnormal glucose Acquired hypothyroidism Unspecified hypothyroidism Change in stool Nonspecific abnormal finding in stool contents History of prostate cancer Personal history of malignant neoplasm of prostate History of colon polyps Personal history of colonic polyps documented in this encounter Care Teams Top Spotter Relationship Specialty Start Date End Date Michele Alfonso DO [address] [place] [address] PCP - General Family Medicine 11/13/20 documented as of this encounter
--- OUTSIDE RECORDS SUMMARY | 2024-01-19 09:51 | External Medical Summary ---
Author Name Unknown Address Unknown Organization K0G[facility] - [address] [place] [address] Laboratory Report Ordering Provider Test Date Status DAVID CASEY 11/03/2023 09:34:30 Final Observation Date Value Abnormality Reference (Units ) Status SYNC LEUKOCYTES IN BLOOD BY AUTOMATED COUNT 11/03/2023 09:34:30 4.33 4.00-10.80 (K/uL) Final Segs 11/03/2023 09:34:30 45.3 40.0-75.0 (%) Final Lymphs % 11/03/2023 09:34:30 39.3 18.0-42.0 (%) Final Monos 11/03/2023 09:34:30 9.9 1.0-11.0 (%) Final Eosinophils 11/03/2023 09:34:30 5.3 0.0-6.0 (%) Final Basos 11/03/2023 09:34:30 0.2 0.0-2.0 (%) Final Absolute Segs 11/03/2023 09:34:30 1.96 1.80-7.70 (K/uL) Final Lymphs, absolute 11/03/2023 09:34:30 1.70 1.00-4.80 (K/ul) Final Monos, Abs 11/03/2023 09:34:30 0.43 0.00-1.10 (K/uL) Final Eos, Abs 11/03/2023 09:34:30 0.23 0.00-0.70 (K/uL) Final Basos, Abs 11/03/2023 09:34:30 0.01 0.00-0.20 (K/uL) Final Performing Location LABORATORY [facility] KARINA 57-1 0 - [address] [place] [address]
--- OUTSIDE RECORDS SUMMARY | 2024-01-19 09:51 | External Medical Summary ---
Author Name Unknown Address Unknown Organization K01:LABORATORY C - [address] [place] [address] Laboratory Report Ordering Provider Test Date Status DAVID CASEY 11/16/2023 16:57:49 Final Observation Date Value Abnormality Reference (Units ) Status Occult Blood (EIA) 11/16/2023 16:57:49 Negative N egative Final Performing Location LAB[facility] - [address] [place] [address]
--- OUTSIDE RECORDS SUMMARY | 2024-01-19 09:51 | External Medical Summary ---
Author Name Unknown Address Unknown Organization K01:[facility] [place] [address] [place] [address] Laboratory Report Ordering Provider Test Date Status DAVID CASEY 11/03/2023 09:34:30 Final Observation Date Value Abnormality Reference (Units ) Status TSH 11/03/2023 09:34:30 6.23 Above high normal 0. 27-4.20 (uIU/mL) Final Performing Location [facility] [place] [address] [place] [address]
--- OUTSIDE RECORDS SUMMARY | 2024-01-19 09:51 | External Medical Summary ---
Author Name Unknown Address Unknown Organization K0G:LABORATORY [place] [facility] - [address] [place] [address] Laboratory Report Ordering Provider Test Date Status DAVID CASEY 11/03/2023 09:34:30 Final Observation Date Value Abnormality Reference (Units ) Status WBC, Total 11/03/2023 09:34:30 4.33 4.00-10.8 0 (K/uL) Final RBC 11/03/2023 09:34:30 5.25 4.50-5.25 (M/uL) Final Hemoglobin 11/03/2023 09:34:30 16.2 14.0-16.8 (g/dL) Final HCT 11/03/2023 09:34:30 47.6 40.0-48.4 (%) Final MCV 11/03/2023 09:34:30 90.7 82.0-99.5 (fL) Final MCH 11/03/2023 09:34:30 30.9 27.0-34.0 (pg) Final MCHC 11/03/2023 09:34:30 34.0 32.0-36.0 (g/dL) Final RDW 11/03/2023 09:34:30 12.6 11.5-15.5 (%) Final Platelets 11/03/2023 09:34:30 142 140-400 (K /uL) Final MPV 11/03/2023 09:34:30 11.1 6.6-11.1 ( fL) Final Performing Location [facility] - [address] [place] [address]
--- OUTSIDE RECORDS SUMMARY | 2024-01-19 09:51 | External Medical Summary | Summary of Care ---
Author Name Unknown Organization [facility] Address [address] [place] [address] Phone [phone] Care Team Providers Care Division Engineer Name Role Phone Nina Alfonsomicheal Amadoderek Primary Care Provider Encounter Details Date Type Department Care Team (Late st Contact Info) Description 11/18/2023 Orders Only PATIENT PORTAL DO NOT DELETE THIS DEPT USED BY [place] [id number] Allergies Active Allergy Reactions Criticality Noted Date Comments Azithromycin 03/27/1999 rash Sulfamethoxazole-Trimethoprim Rash Medium 2014 Rash on day #2 documented as of this encounter (statuses as of 11/18/2023) Medications Medication Sig Dispensed Refills Start Date [...] Active Levothyroxine Sodium 75 MCG Oral Tablet (Levoxyl)Indications: Mixed dyslipidemia,Acquired hypothyroidism Take 1 Tablet by mouth in the morning. (at least 30 min prior to breakfast or other meds). 30 Tablet 11 11/16/2023 Active documented as of this encounter (statuses as of 11/18/2023) Active Problems Problem Noted Date Diagnosed Date Monoallelic mutation of PALB2 gene 02/12/2022 Overview: pathogenic PALB2 gene variant (c.3116del p.(Q6406Hkd*2)) detected via [employer]. Increased risk for PALB2-associated cancer risk (breast, pancreatic cancers). Please click the link below into your browser for a brief summary of current clinical management recommendations for PALB2 - associated cancer risk PALB2 Symptomatic PVCs 04/21/2021 HTN, goal below 130/80 12/24/2016 History of prostate cancer 05/15/2014 documented as of this encounter (statuses as of 11/18/2023) Resolved Problems Problem Noted Date Diagnosed Date [...] as of this encounter (statuses as of 11/18/2023) Immunizations Name Administration Dates Next Due COVID-19 mRNA, LNP-s, No Pre serve, 2-Dose Series (Firm58) 02/11/2021,06/15/2020,05/20/2020 COVID-19, LNP-s, No Preserve , Corey-sucrose, [...] 11/02/2023 Does the household have a re lar source of income? (Household - for ages [...] on file documented as of this encounter Plan of Treatment Upcoming Encounters Date Type Department Care Team (Latest Contact Info) Description 02/07/2024 12:30 PM EST Nurse Only Ancillary [facility] [address] [place] [address] [place] Nurse Annual Wellness [place] [address] [place] [address] 03/07/2024 2:30 PM EST Hospital Encounter ENDO [facility], Endoscopy Room [facility] [address] [place] [phone] Italia You MD [address] [place] [address] 03/07/2024 2:30 PM EST - 03/07/2024 3:00 PM EST Surgery ENDO [facility], Endoscopy Room [facility] [address] [place] [phone] Italia You MD [address] [place] [address] COLONOSCOPY FLEXIBLE PROXIMAL DIAGNOSTIC 05/18/2024 2:00 PM EST [facility] Visit [facility] [address] [place] [address] Myra Kellogg CRNP [address] [place] [address] 11/28/2024 10:20 AM EDT Office Visit [facility] [address] [place] [address] Michele Alfonso DO [address] [place] [address] Scheduled Procedures Name Priority Associated Diagnoses Date/Ti me COLONOSCOPY FLEXIBLE PROXIMAL DIAGNOSTIC Recall History of colon polyps 03/07/2024 2:30 PM EST Health Maintenance Due Date Last Done Comments Cologuard 1998 Sigmoidoscopy 1998 COVID-19 Vaccine ( season) [...] 11/02/2024 11/03/2023, 03/06, 09/24/2022, Additional history exists Fecal Occult Blood Test 11/15/2024 11/16/2023 Albumin/Creatinine Ratio 03/25/2026 023, 12/31/2021, 11/13/2020, Additional [...] this encounter Medical Devices Implanted Type Area Day Trader Device Identifier Shelf Expiration Date Model / Serial / Lot Lens Intraoc 17.0 - [id number] - [id number] Implanted:Qty: 1 on 12/07/2019 by Larry Blackwell MD at [facility] Left: Eye BAUSCH & LOMB 02/03/2024 [id number] / [id number] / Sofport Implanted:Qty: 1 on 12/14/2019 by RishiLarry schulte MD at OR [facility] Right: Eye BAUSCH & LOMB 02/03/2024 [id number] / / [id number] documented as of this encounter Care Teams Division Engineer Relationship Specialty Start Date End Date Michele Alfonso DO [address] [place] [address] PCP - General Family Medicine 11/13/20 documented as of this encounter
--- OUTSIDE RECORDS SUMMARY | 2024-01-19 09:51 | External Medical Summary | Summary of Care ---
Author Name Unknown Organization [facility] Address [address] [place] [address] Phone [phone] Care Team Providers Care Bench Mechanic Name Role Phone Nina Alfonsomicheal Amadoderek Primary Care Provider Reason for Visit * Reason Comments Outpatient Testing Encounter Details Date Type Department Care Team (Late st Contact Info) Description 11/03/2023 9:30 AM EDT Laboratory Laboratory, [facility] [address] [place] [address] [facility] [address] [place] [address] Acquired hypothyroidism; Mixed dyslipidemia; HTN, goal below 130/80; Elevated TSH Allergies Active Allergy Reactions Criticality Noted Date Comments Azithromycin 03/27/1999 rash Sulfamethoxazole-Trimethoprim Rash Medium 2014 Rash on day #2 documented as of this encounter (statuses as of 11/03/2023) Medications Medication Sig Dispensed Refills Start Date [...] Active Levothyroxine Sodium 50 MCG Oral Tablet (Levoxyl)Indications: Subclinical hypothyroidism TAKE 1 TABLET by mouth DAILY FIRST THING IN THE MORNING AT LEAST 30 MINUTES PRIOR TO BREAKFAST OR OTHER MEDS 90 Tablet 1 10/25/2023 Active documented as of this encounter (statuses as of 11/03/2023) Active Problems Problem Noted Date Diagnosed Date Monoallelic mutation of PALB2 gene 02/12/2022 Overview: pathogenic PALB2 gene variant (c.3116del p.([id number]*2)) detected via [employer]. Increased risk for PALB2-associated cancer risk (breast, pancreatic cancers). Please click the link below into your browser for a brief summary of current clinical management recommendations for PALB2 - associated cancer risk PALB2 Symptomatic PVCs 04/21/2021 HTN, goal below 130/80 12/24/2016 History of prostate cancer 05/15/2014 documented as of this encounter (statuses as of 11/03/2023) Resolved Problems Problem Noted Date Diagnosed Date [...] as of this encounter (statuses as of 11/03/2023) Immunizations Name Administration Dates Next Due COVID-19 mRNA, LNP-s, No Pre serve, 2-Dose Series (Pfizer) 02/11/2021,06/15/2020,05/20/2020 COVID-19, LNP-s, No Preserve , Corey-sucrose, [...] 11/16/2023 10:20 AM EDT Office Visit Family [address] [place] [address] Michele Alfonso, [address] [place], [place] [address] 02/07/2024 12:30 PM EST Nurse Only Ancillary [facility] [address] [place] [address] [place], Nurse Annual Wellness [facility] [address] [place] [address] 03/07/2024 2:30 PM EST Hospital Encounter ENDO [facility], Endoscopy Room [facility] [address] [place] [phone] Italia You MD [address] [place] [address] 03/07/2024 2:30 PM EST - 03/07/2024 3:00 PM EST Surgery ENDO [facility], Endoscopy Room [facility] [address] [place] [phone] Italia You MD [address] [place] [address] COLONOSCOPY FLEXIBLE PROXIMAL DIAGNOSTIC Pending Results Name Type Priority Associated Diagnoses Date /Time TSH WITH FREE T4 IF INDICATED Lab Routine Acquired hypothyroidism 11/03/2023 9:34 AM EDT LIPID PANEL WITH DIRECT LDL IF TG IS HIGH Lab Routine Mixed dyslipidemia 11/03/2023 9:34 AM EDT CBC WITH WBC DIFFERENTIAL Lab Routine HTN, goal below 130/80 Elevated TSH 11/03/2023 9:34 AM EDT CBC Lab Routine HTN, goal below 130/80 Elevated TSH 11/03/2023 9:34 AM EDT DIFFERENTIAL, AUTOMATED Lab Routine HTN, goal below 130/80 Elevated TSH 11/03/2023 9:34 AM EDT Scheduled Procedures Name Priority Associated Diagnoses Date/Ti [...] 11/13/2030 11/13/2020, 10/01/2010, 11/27/2004, Additional history exists Hepatitis C Screening Completed 11/07/2014 RETIRED - COLONOSCOPY-EVERY 5 YRS AGES 18-100 [...] this encounter Medical Devices Implanted Type Area Paraeducator Device Identifier Shelf Expiration Date Model / Serial / Lot Lens Intraoc 17.0 - [id number] - [id number] Implanted:Qty: 1 on 12/07/2019 by Larry Blackwell MD at OR [facility] Left: Eye BAUSCH & LOMB 02/03/2024 [id number] / [id number] / Sofport Implanted:Qty: 1 on 12/14/2019 by Larry Blackwell MD at OR [facility] Right: Eye BAUSCH & LOMB 02/03/2024 [id number] / / [id number] documented as of this encounter Visit Diagnoses Diagnosis Acquired hypothyroidism Unspecified hypothyroidism Mixed dyslipidemia Mixed hyperlipidemia HTN, goal below 130/80 Unspecified essential hypertension Elevated TSH Other abnormal blood chemistry History of colon polyps Personal history of colonic polyps documented in this encounter Care Teams Bench Mechanic Relationship Specialty Start Date End Date Michele Alfonso DO [facility] [address] [place] [address] PCP - General Family Medicine 11/13/20 documented as of this encounter
--- OUTSIDE RECORDS SUMMARY | 2024-01-19 09:51 | External Medical Summary | Summary of Care ---
Author Name Unknown Organization [facility] Address [address] [place] [address] Phone [phone] Care Team Providers Care Shim Plug Cutter Name Role Phone Carmela Alfonso DO Primary Care Provider Reason for Visit * Reason Onset Date Comments Medication Refill 10/24/2023 Encounter Details Date Type Department Care Team (Late st Contact Info) Description 10/24/2023 Refill Family Practice [facility] [address] [facility] [address] [facility] [address] [facility] [address] BENIGN HYPERTENSION; Subclinical hypothyroidism Allergies Active Allergy Reactions Criticality Noted Date [...] in the morning. 90 Tablet 3 04/07/2023 Active amLODIPine Besylate 5 MG Oral Tablet (Norvasc) TAKE 1 TABLET TWICE A DAY 180 Tablet 1 10/25/2023 Active Metoprolol Succinate ER 100 MG Oral Tablet Extended Release 24 Hour (toPROL XL)Indications:HTN, goal below 140/90 TAKE 1 TABLET IN THE MORNING AND 1 TABLET BEFORE BEDTIME 180 Tablet 1 10/25/2023 Active Levothyroxine Sodium 50 MCG Oral Tablet (Levoxyl)Indications :Subclinical hypothyroidism TAKE 1 TABLET DAILY FIRST THING IN THE MORNING AT LEAST 30 MINUTES PRIOR TO BREAKFAST OR OTHER MEDS 90 Tablet 1 10/25/2023 Active amLODIPine Besylate 5 MG Oral Tablet (Norvasc) TAKE 1 TABLET TWICE A DAY 180 Tablet 3 12/22/2022 4 Discontinue d(Refill) Metoprolol Succinate ER 100 MG Oral Tablet Extended Release 24 Hour (toPROL XL)Indications:HTN, goal below 140/90 TAKE 1 TABLET IN THE MORNING AND 1 TABLET BEFORE BEDTIME 180 Tablet 3 01/07/2023 4 Discontinue d(Refill) Levothyroxine Sodium 50 MCG Oral Tablet (Levoxyl)Indications :Subclinical hypothyroidism TAKE 1 TABLET DAILY FIRST THING IN THE MORNING AT LEAST 30 MINUTES PRIOR TO BREAKFAST OR OTHER MEDS 90 Tablet 1 08/26/2023 4 Discontinue d(Refill) documented as of this encounter (statuses as of 10/25/2023) Active Problems Problem Noted Date Diagnosed Date Monoallelic mutation of PALB2 gene 02/12/2022 Overview: pathogenic PALB2 gene variant (c.3116del p.(X0714Lra*2)) detected via [employer]. Increased risk for PALB2-associated cancer risk (breast, [...] mRNA, LNP-s, No Pre serve, 2-Dose Series ([employer]) 02/11/2021,06/15/2020,05/20/2020 COVID-19, LNP-s, No Preserve , Corey-sucrose, Ages 12+ (Aneumed) 09/05/2021 COVID-19, MRNA-LNP, 23-24, P F, 30 [...] encounter Miscellaneous Notes * Telephone Encounter - Doc Moseley [facility] - 10/25/2023 8:10 AM EDTSigned Prescriptions: Disp Refills amLODIPine Besylate 5 MG Oral Tablet (Norv*180 Ta*1 Sig: TAKE 1 TABLET TWICE A DAYAuthorizing Provider: CARMELA ALFONSO User: DOC MOSELEY Metoprolol Succinate ER 100 MG Oral Tablet*180 Ta*1 Sig: TAKE 1 TABLET IN THE MORNING AND 1 TABLET BEFORE BEDTIMEAuthorizing Provider: CARMELA ALFONSO User: DOC MOSELEY Levothyroxine Sodium 50 MCG Oral Tablet (L*90 Tab*1 Sig: TAKE 1 TABLET DAILY FIRST THING IN THE MORNING AT LEAST 30 MINUTES PRIOR TO BREAKFAST OR OTHER MEDSAuthorizing Provider: CARMELA ALFONSO User: DOC MOSELEY documented in this encounter Plan of Treatment Upcoming Encounters Date Type Department Care Team (Latest Contact Info) Description 02/07/2024 12:30 PM EST Nurse Only Ancillary [facility] [address] [place] [address] [facility], Nurse Annual Wellness [facility] [address] [place] [address] 02/29/2024 1:00 PM EST Office Visit Family Practice [facility] [address] [place] [address] Carmela Alfonso, [address] [place] [address] 03/07/2024 2:30 PM EST Hospital Encounter ENDO [facility], Endoscopy Room [facility] [address] [place] [phone] Italia You MD [address] [place] [address] 03/07/2024 2:30 PM EST - 03/07/2024 3:00 PM EST Surgery ENDO [facility], Endoscopy Room [facility] [address] [place] [phone] Italia You MD [address] [place] [...] this encounter Medical Devices Implanted Type Area Taper/Finisher Device Identifier Shelf Expiration Date Model / Serial / Lot Lens Intraoc 17.0 - [id number] - [id number] Implanted:Qty: 1 on 12/07/2019 by Larry Blackwell MD at OR [facility] Left: Eye BAUSCH & LOMB 02/03/2024 [id number] / [id number] / Sofport Implanted:Qty: 1 on 12/14/2019 by Larry Blackwell MD at OR [facility] Right: Eye BAUSCH & LOMB 02/03/2024 [id number] / / [id number] documented as of this encounter Visit Diagnoses Diagnosis BENIGN HYPERTENSION Unspecified essential hypertension Subclinical hypothyroidism Other specified acquired hypothyroidism History of colon polyps Personal history of colonic polyps documented in this encounter Care Teams Shim Plug Cutter Relationship Specialty Start Date End Date Carmela Alfonso DO [address] [facility] [place] [address] PCP - General Family Medicine 11/13/20 documented as of this encounter
--- OUTSIDE RECORDS SUMMARY | 2024-01-19 09:52 | External Medical Summary | Summary of Care ---
Author Name Unknown Organization [facility] Address [address] [place] [address] Phone [phone] Care Team Providers Care Contract Administration Coordinator Name Role Phone Nina Alfonsor Tess Primary Care Provider Reason for Visit * Reason Onset Date Comments Appointment 10/04/2023 Encounter Details Date Type Department Care Team (Late st Contact Info) Description 10/04/2023 Telephone Care at Home [address] [place], [place] [id number] Services, Scheduling [address] [place] [address] Appointment Allergies Active Allergy Reactions Criticality Noted Date Comments Azithromycin 03/27/1999 rash Sulfamethoxazole-Trimethoprim Rash Medium 2014 Rash on day #2 documented as of this encounter (statuses as of 10/04/2023) Medications Medication Sig Dispensed Refills Start Date End Date Status Multi Vitamin Daily Oral Tablet Take by mouth 1 Tablet daily . Active amLODIPine Besylate 5 MG Oral Tablet (Norvasc) TAKE 1 TABLET TWICE A DAY 180 Tablet 3 12/22/2022 Active Metoprolol Succinate ER 100 MG Oral Tablet Extended Release 24 Hour (toPROL XL)Indications:HTN, goal below 140/90 TAKE 1 TABLET IN THE MORNING AND 1 TABLET BEFORE BEDTIME 180 Tablet 3 01/07/2023 Active Losartan Potassium 100 MG Oral Tablet (Cozaar) Take 1 Tablet by mouth in the morning. 90 Tablet 3 04/07/2023 Active Levothyroxine Sodium 50 MCG Oral Tablet (Levoxyl)Indications: Subclinical hypothyroidism TAKE 1 TABLET DAILY FIRST THING IN THE MORNING AT LEAST 30 MINUTES PRIOR TO BREAKFAST OR OTHER MEDS 90 Tablet 1 08/26/2023 Active documented as of this encounter (statuses as of 10/04/2023) Active Problems Problem Noted Date Diagnosed Date Monoallelic mutation of PALB2 gene 02/12/2022 Overview: pathogenic PALB2 gene variant (c.3116del p.(F0727Qpb*2)) detected via [employer]. Increased risk for PALB2-associated cancer risk (breast, pancreatic cancers). Please click the link below into your browser for a brief summary of current clinical management recommendations for PALB2 - associated cancer risk PALB2 Symptomatic PVCs 04/21/2021 HTN, goal below 130/80 12/24/2016 History of prostate cancer 05/15/2014 documented as of this encounter (statuses as of 10/04/2023) Resolved Problems Problem Noted Date Diagnosed Date [...] as of this encounter (statuses as of 10/04/2023) Immunizations Name Administration Dates Next Due COVID-19 mRNA, LNP-s, No Pre serve, 2-Dose Series ([employer]) 02/11/2021,06/15/2020,05/20/2020 COVID-19, LNP-s, No Preserve , Corey-sucrose, Ages 12+ (Pfizer) 09/05/2021 COVID-19, MRNA-LNP, 23-24, P F, 30 MCG/0.3 mL, 12 YRS AND ABOVE, IM (P[employer]ER-[employer]) 03/11/2023 H1N1 2009 Influenza, IM 03/05/2009 PPD [...] encounter Miscellaneous Notes * Telephone Encounter - Donna Becker [facility] - 10/04/2023 1:44 PM EDT Care At Home Outreach Call attempt: 1st Call Call result: Call Unsuccessful - Ineligible: scheduled with pcp office documented in this encounter Plan of Treatment Upcoming Encounters Date Type Department Care Team (Latest Contact Info) Description 02/07/2024 12:30 PM EST Nurse Only Ancillary [facility] [address] [place] [address] [place], Nurse Annual Wellness [facility] [address] [place] [address] 02/29/2024 1:00 PM EST Office Visit Family Practice [facility] [address] [place] [address] Michele Alfonso DO [address] [place] [address] 03/07/2024 2:30 PM EST Hospital Encounter ENDO [facility], Endoscopy Room [facility] [address] [place], [place] [phone] Italia You MD [address] [place] [address] 03/07/2024 2:30 PM EST - 03/07/2024 3:00 PM EST Surgery ENDO [facility], Endoscopy Room [facility] [address] [place] [phone] Italia You MD [address] [place] [address] COLONOSCOPY FLEXIBLE PROXIMAL DIAGNOSTIC Scheduled Procedures Name [...] Pneumococcal Vaccine: 65+ Years Completed 01/27/2020, 12/26/2018 GARDASIL-HPV IMMUNIZATION SERIES Aged Out No longer eligible based on patient's age to complete this topic Hepatitis B Aged Out No longer eligi ble based on patient's age to complete this topic MENINGOCOCCAL (MENACTRA/MENVEO) Aged Out No longer eligible based on patient's age to complete this topic documented as of this encounter Medical Devices Implanted Type Area Rate Analyst Device Identifier Shelf Expiration Date Model / Serial / Lot Lens Intraoc 17.0 - [id number] - [id number] Implanted:Qty: 1 on 12/07/2019 by Larry Blackwell MD at OR [facility] Left: Eye BAUSCH & LOMB 02/03/2024 [id number] / [id number] / Sofport Implanted:Qty: 1 on 12/14/2019 by Larry Blackwell MD at OR [facility] Right: Eye BAUSCH & LOMB 02/03/2024 [id number] / / [id number] documented as of this encounter Care Teams Contract Administration Coordinator Relationship Specialty Start Date End Date Michele Alfonso DO [address] [place] [address] PCP - General Family Medicine 11/13/20 documented as of this encounter
--- OUTSIDE RECORDS SUMMARY | 2024-01-19 09:52 | External Medical Summary | Summary of Care ---
Author Name Unknown Organization [facility] Address [address] [place] [address] Phone [phone] Care Team Providers Care Ore Dryer Name Role Phone Carmela Alfonso DO Primary Care Provider Reason for Visit * Reason Comments eRx-Medication Refill Encounter Details Date Type Department Care Team (Late st Contact Info) Description 08/25/2023 Refill Family Practice [facility] [address] [facility] [place] [address] Carmela Alfonso DO [address] [facility] [place] [address] Subclinical hypothyroidism Allergies Active Allergy Reactions Criticality Noted Date Comments Azithromycin 03/27/1999 rash Sulfamethoxazole-Trimethoprim Rash Medium 2014 Rash on day #2 documented as of this encounter (statuses as of 08/26/2023) Medications Medication Sig Dispensed Refills Start Date [...] Tablet (Levoxyl)Indication s:Subclinical hypothyroidism TAKE 1 TABLET DAILY FIRST THING IN THE MORNING AT LEAST 30 MINUTES PRIOR TO BREAKFAST OR OTHER MEDS 90 Tablet 1 08/26/2023 Active Levothyroxine Sodium 50 MCG Oral Tablet (Levoxyl)Indication s:Subclinical hypothyroidism Take 1 Tablet by mouth daily first thing in the morning. (at least 30 min prior to breakfast or other meds). 90 Tablet 3 10/28/2022 08/26/19 24 Discontinued documented as of this encounter (statuses as of 08/26/2023) Active Problems Problem Noted Date Diagnosed Date Monoallelic mutation of PALB2 gene 02/12/2022 Overview: pathogenic PALB2 gene variant (c.3116del p.(M7414Zcq*2)) detected via [employer]. Increased risk for PALB2-associated cancer risk (breast, pancreatic cancers). Please click the link below into your browser for a brief summary of current clinical management recommendations for PALB2 - associated cancer risk PALB2 Symptomatic PVCs 04/21/2021 HTN, goal below 130/80 12/24/2016 History of prostate cancer 05/15/2014 documented as of this encounter (statuses as of 08/26/2023) Resolved Problems Problem Noted Date Diagnosed Date [...] as of this encounter (statuses as of 08/26/2023) Immunizations Name Administration Dates Next Due COVID-19 mRNA, LNP-s, No Pre serve, 2-Dose Series ([employer]) 02/11/2021,06/15/2020,05/20/2020 COVID-19, LNP-s, No Preserve , Corey-sucrose, Ages 12+ (Pfizer) 09/05/2021 COVID-19, MRNA-LNP, 23-24, P F, 30 MCG/0.3 mL, 12 YRS AND ABOVE, IM ([facility]) 03/11/2023 H1N1 2009 Influenza, IM 03/05/2009 PPD [...] 12/26/2018 TDAP (age 10 and older)(Boostrix) 11/13/2020 TDAP (age 11 and older)(Adacel) 10/01/2010 Varicella Zoster Vaccine (Adult) 10/16/2013 Zoster [...] money to get more. Never true 09/11/2022 Sex and Gender Information Value Date Recorded Sex Assigned at Male 09/11/2019 10:29 AM EDT Gender Identity Male 09/11/2019 10:29 AM EDT Sexual Orientation Straight 09/11/2019 10 :29 AM EDT Job Start Date Occupation Industry Not on file Not on file Not on file documented as of this encounter Miscellaneous Notes * Telephone Encounter - Kristal Bear RPh - 08/26/2023 1:20 PM EDTSigned Prescriptions: Disp Refills Levothyroxine Sodium 50 MCG Oral Tablet (L*90 Tab*1 Sig: TAKE 1 TABLET DAILY FIRST THING IN THE MORNING AT LEAST 30 MINUTES PRIOR TO BREAKFAST OR OTHER MEDSAuthorizing Provider: CARMELA ALFONSO User: KRISTAL BEAR documented in this encounter Plan of Treatment Upcoming Encounters Date Type Department Care Team (Latest Contact Info) Description 11/01/2023 10:45 AM EDT Hospital Encounter ENDO [facility], Endoscopy Room [facility] [address] [place] [phone] Italia You MD [address] [facility] [place] [phone] 11/01/2023 10:45 AM EDT - 11/01/2023 11:15 AM EDT Surgery ENDO [facility], Endoscopy Room [facility] [address] [place] [phone] Italia You MD [address] [place] [address] COLONOSCOPY FLEXIBLE PROXIMAL DIAGNOSTIC 02/07/2024 12:30 PM EST Nurse Only Ancillary [facility] [place] [address] [facility], Nurse Annual Wellness [facility] [address] [facility] [place] [address] 02/29/2024 1:00 PM EST Office Visit Family Practice [facility] [address] [facility] [place] [address] Carmela Alfonso DO [address] [facility] [place] [address] Scheduled Procedures Name Priority Associated Diagnoses Date/Ti me COLONOSCOPY FLEXIBLE PROXIMAL DIAGNOSTIC Recall History of colon polyps 11/01/2023 10:45 AM EDT Health Maintenance Due Date Last Done Comments Cologuard 1998 Fecal Occult Blood Test 1998 Sigmoidoscopy 1998 COVID-19 Vaccine ( season) 2023 03/11/2023, 09/05/2021, 02/11/2021, Additional history exists Depression Screening 02/04/2024 02/03/2023 [...] Pneumococcal Vaccine: 65+ Years Completed 01/27/2020, 12/26/2018 Influenza Vaccine (FLU shot) Completed 02/03/2023, 12/31/2021, 12/11/2020, Additional history exists GARDASIL-HPV IMMUNIZATION SERIES Aged Out No longer eligible based on patient's age to complete this topic Hepatitis B Aged Out No longer eligi ble based on patient's age to complete this topic MENINGOCOCCAL (MENACTRA/MENVEO) Aged Out No longer eligible based on patient's age to complete this topic documented as of this encounter Medical Devices Implanted Type Area Mid Level Developer Device Identifier Shelf Expiration Date Model / Serial / Lot Lens Intraoc 17.0 - [id number] - [id number] Implanted:Qty: 1 on 12/07/2019 by Larry Blackwell MD at OR [facility] Left: Eye BAUSCH & LOMB 02/03/2024 [id number] / [id number] / Sofport Implanted:Qty: 1 on 12/14/2019 by Larry Blackwell MD at OR [facility] Right: Eye BAUSCH & LOMB 02/03/2024 [id number] / / [id number] documented as of this encounter Visit Diagnoses Diagnosis Subclinical hypothyroidism Other specified acquired hypothyroidism History of colon polyps Personal history of colonic polyps documented in this encounter Care Teams Ore Dryer Relationship Specialty Start Date End Date Carmela Alfonso DO [address] [place] [address] PCP - General Family Medicine 11/13/20 documented as of this encounter
--- NOTE | 2024-01-19 10:48 | Hospitalist Progress Note ---
Date of Service January 19, 2024 Assessment & Plan (1) Chest pain: Plan: 68-year-old male with past medical history significant for hypertension, symptomatic PVCs, history of prostate cancer comes in because of chest pressure. Patient noticed chest pressure while he was playing golf around 5 PM. No radiation. No shortness. No headache. No dizziness. No blurred vision. No runny nose or sore throat. No cough. No nausea. No abdominal pain. Normal bowel and bladder movements. Patient says he has PVCs and currently he having them and feeling them. Still have some pressure in the chest. He was weird feeling in the chest for last couple of days . Patient states he ambulates 2 to 5 miles every day. Currently hemodynamics are stable. Chest pain Initial workup unremarkable Troponins trended from 12.8 -20.6-15.4 EKG NSR echo with EF of 55 to 60%, mild left ventricular hypertrophy, no wall motion abnormalities, mild mitral regurgitation and grade 1 diastolic dysfunction AM hemoglobin A1c and lipid panel pending cardiology consulted, appreciate recs. Recommended or stated the following: -Nuclear stress test in the a.m. -Patient made n.p.o. after midnight in case further procedure needed based on results. continue to monitor on telemetry Symptomatic PVCs On metoprolol patient follows with cardiology Continue to monitor on telemetry Hypertension On losartan, metoprolol and amlodipine per cardiology, add hydrochlorothiazide continue to monitor Hypothyroidism On Synthroid, continue History of prostate cancer S/p SBRT Diet: HH, NPO after midnight DVT prophylaxis: SCDs Dispo: Home once medically stable Admission and Anticipated Discharge Date Admission Date: January 19, 2024 Subjective patient was seen in the early a.m.a.m. States he still having chest pressure and fluttering at the time States it happened while playing golf, who also noted that he had an increased heart rate and blood pressure at that time Does note that his symptoms have improved however they are still present. Review of Systems Review of Systems: All systems reviewed & are unremarkable except as noted in Subjective Physical Exam Physical Exam: General: Alert, oriented. No acute distress Skin: No noted rashes or bruises Psych: Appropriate mood and affect Neuro: No gross deficits HEENT: NC/AT Chest: Nontender to palpation. CV: RRR Resp: Breath sounds clear bilaterally, no increased effort of breathing. Abdomen: Soft, nontender, nondistended. Extremities: No edema in lower extremities bilaterally. Results & Data Results & Data Vital Signs (Past 12 Hours) Vital Signs Temp Pulse Pulse Pulse Resp BP BP 01/19/24 07:55 36.7 C 61 16 160/87 H 01/19/24 06:09 01/19/24 05:44 36.8 C 61 16 01/19/24 05:28 62 12 145/83 H 01/19/24 04:13 60 01/19/24 02:00 65 14 01/19/24 00:57 69 16 01/18/24 23:55 75 01/18/24 23:51 78 20 01/18/24 23:50 80 20 01/18/24 23:41 36.5 C 84 16 176/95 H BP Pulse Ox O2 Del Method 01/19/24 07:55 98 Room Air 01/19/24 06:09 Room Air 01/19/24 05:44 157/87 H 96 Room Air 01/19/24 05:28 96 Room Air 01/19/24 04:13 01/19/24 02:00 149/87 H 97 Room Air 01/19/24 00:57 162/91 H 94 Room Air 01/18/24 23:55 01/18/24 23:51 160/102 H 98 Room Air 01/18/24 23:50 97 Room Air 01/18/24 23:41 97 Room Air Diagnostic Findings Chest X-Ray 01/18/24 23:47 XR chest 2V PA/lateral CLINICAL HISTORY: Chest pain, nonspecific TECHNIQUE: 2 views of the chest were obtained. Comparison: Comparison is made to chest radiograph 04/08/2022 FINDINGS: No lines and tubes are seen. The cardiomediastinal silhouette is normal. The lungs are clear. No evidence of pleural effusion or pneumothorax. IMPRESSION: No acute chest disease. ACT 112: Negative or not required by law. Electronically signed by: Gildardo Ortiz M.D. 01/19/2024 6:50 AM (1) Chest pain Chest pain type: unspecified Qualified Code(s): R07.9 - Chest pain, unspecified
--- NOTE | 2024-01-19 13:31 | Cardiology Consultation ---
Date of Consultation January 19, 2024 Assessment & Plan (1) Atypical chest pain: (2) Elevated troponin I level: (3) Uncontrolled hypertension: (4) PVC (premature ventricular contraction): Plan 68-year-old male presents with palpitations and chest discomfort with atypical features. Minimally elevated high-sensitivity troponin recorded which has normalized. No ischemic ECG changes or regional wall motion abnormality per echocardiogram. Blood pressure elevated since admission. Recommend addition of hydrochlorothiazide 25 mg daily. Continue amlodipine, metoprolol, losartan as ordered. Add low-dose aspirin 81 mg daily. Lexiscan nuclear stress test recommended due to high-dose beta-navjot therapy (unlikely to achieve target heart rate with exercise). History of Present Illness Reason for Consultation: Chest pain Requesting Physician: Dr. Palmer Attending Physician: Elysia Newman MD History of Present Illness 68-year-old male present to the emergency department with elevated heart rate and chest tightness. Patient describes heart rate of 107 bpm while walking downhill. Typically he is able to control his heart rate with deep breathing and relaxation. Unfortunately, yesterday, elevated heart rate continued with some associated chest tightness. Elevated blood pressure readings also reported. He came to the ER for further evaluation and treatment. Blood pressure initially 176/95 in the ER. Minimally elevated high-sensitivity troponin of 20.6 recorded. ECG without ischemic changes. Resting echocardiogram demonstrates normal wall motion. History of symptomatic PVCs controlled with high-dose beta-navjot therapy. In general he is an active person walking up to 5 miles daily and lifting weights. Denies any exertional chest pain or unusual shortness of breath recently. No orthopnea, PND, or lower extremity edema. Denies any recent noncompliance with antihypertensive therapies or beta-navjot. Allergies Allergy/AdvReac Type Severity Reaction Status Date / Time salicylates Allergy Intermediate UNKNOWN Verified 11/21/10 14:38 azithromycin Allergy Unknown Unknown Verified 03/15/19 14:47 acetaminophen AdvReac Intermediate UNKNOWN Verified 11/21/10 14:38 Home Medications Medication Instructions Recorded Confirmed Type Men's 50 Plus Multivitamin 1 tab PO HS 01/19/24 01/19/24 History amlodipine 5 mg tablet 5 mg PO BID 01/19/24 01/19/24 History levothyroxine 75 mcg tablet 75 mcg PO QAM 01/19/24 01/19/24 History losartan 100 mg tablet 100 mg PO QAM 01/19/24 01/19/24 History metoprolol succinate 100 mg 100 mg PO BID 01/19/24 01/19/24 History tablet,extended release 24 hr Patient History Medical History Symptomatic PVCs Palpitations Hypertension Surgical History No pertinent past surgical history Family History Other Family history non-contributory Social History Smoking Status: Never smoker Hx Alcohol Use: No Hx Substance Use: No Preferred Language: Com[place] Communication Ability: Effective Beliefs That Will Affect Care: None Current Living Situation: Spouse Feels Safe at Home: Yes Safety Concerns: Feels Safe At This Time Assistive Devices: Glasses Review of Systems Review of Systems: All systems reviewed & are unremarkable except as noted in Subjective Physical Exam Constitutional: well nourished; no acute distress Respiratory: no respiratory distress, no labored breathing and no retractions Auscultation: no crackles, no rales, no rhonchi and no wheezes Cardiovascular: Rate/Rhythm: regular rate and regular rhythm Heart Sounds: normal S1 and normal S2; no murmur Gastrointestinal (Abdomen): Inspection/Auscultation: abdomen normal to inspection; abdomen not distended Percussion/Palpation: abdomen soft; abdomen nontender, no guarding and abdomen not rigid Neurologic: CN's II-XI intact bilaterally and moves all extremities; no focal motor deficits Results & Data Vital Signs (Past 12 Hours) Vital Signs Temp Pulse Pulse Pulse Resp BP BP 01/19/24 12:53 36.3 C L 63 16 156/86 H 01/19/24 07:55 36.7 C 61 16 160/87 H 01/19/24 06:50 56 L 01/19/24 06:09 01/19/24 05:44 36.8 C 61 16 01/19/24 05:28 62 12 145/83 H 01/19/24 04:13 60 01/19/24 02:00 65 14 BP Pulse Ox O2 Del Method 01/19/24 12:53 92 Room Air 01/19/24 07:55 98 Room Air 01/19/24 06:50 01/19/24 06:09 Room Air 01/19/24 05:44 157/87 H 96 Room Air 01/19/24 05:28 96 Room Air 01/19/24 04:13 01/19/24 02:00 149/87 H 97 Room Air Laboratory Results Cardiac Enzymes 01/18/24 01/19/24 01/19/24 Range/Units 23:52 07:14 12:17 Troponin I High Sens 12.8 20.6 H 15.4 D (0-20) pg/ml Coagulation 01/18/24 Range/Units 23:52 PT 10.7 (9.0-12.0) Seconds APTT 27 (21-31) Seconds CBC 01/18/24 01/19/24 Range/Units 23:52 07:14 WBC 6.66 5.24 (4.8-10.8) K/ul RBC 5.61 5.04 (4.70-6.10) M/uL Hgb 17.1 15.6 (14.0-18.0) g/dl Hct 49.8 43.7 (42.0-52.0) % Plt Count 170 147 (130-400) K/uL Neut # (Auto) 2.58 3.01 (1.40-6.50) K/uL Lymph # (Auto) 3.32 1.45 (1.20-3.40) K/uL [place] # (Auto) 0.52 0.60 H (0.11-0.59) K/uL Eos # (Auto) 0.18 0.13 (0.00-0.50) K/uL Baso # (Auto) 0.03 0.03 (0.00-0.20) K/uL Comprehensive Metabolic Panel 01/18/24 01/19/24 Range/Units 23:52 07:14 Sodium 140 141 (136-145) mmol/L Potassium 3.4 L 3.8 (3.5-5.1) mmol/L Chloride 101 104 (98-107) mmol/L Carbon Dioxide 27 30 (21-32) mmol/L BUN 19 15 (6-23) mg/dl Creatinine 0.94 0.80 (0.6-1.4) mg/dl Glucose 120 H 103 H (70-99(Fasting)) mg/dl Calcium 9.7 8.8 (8.6-10.3) mg/dl Intake and Output 01/18/24 01/19/24 01/19/24 22:59 06:59 14:59 Other: Weight 83.3 kg Weight Measurement Method Standing Scale
[2024-01-19] MEDS: hydroCHLOROthiazide 25 MG TAB PO SCH (14:28)
[2024-01-19] MEDS ORDERED: MULTIVITAMIN PO SCH (21:00)
[2024-01-20 08:03] LABS: Hematocrit (blood only) 46.6 % (42.0-52.0); Hemoglobin 16.6 g/dl (14.0-18.0); Mean Corpuscular Hemoglobin 30.9 pg (25.0-34.0); Mean Corpuscular Hgb Conc 35.6 g/dL (32.0-36.0); Mean Corpuscular Volume 86.8 fL (80.0-100.0); Mean Platelet Volume 10.9 fL (9.4-12.4); Platelet Count 159 K/uL (130-400); RDW Coefficient of Variation 12.4 % (11.5-14.5); RDW Standard Deviation 39.1 fL (36.4-46.3); Red Blood Count 5.37 M/uL (4.70-6.10); White Blood Count 5.56 K/ul (4.8-10.8)
[2024-01-20 08:30] LABS: Estimated Average Glucose 97 mg/dl
[2024-01-20 08:37] LABS: BUN Creatinine Ratio 23.4 (10-20); Chol HDL Ratio 3.4 (0-5); Creatinine Clr Calc Pharmacy 77.9 ml/min; Magnesium 2.4 mg/dl (1.7-2.4); Phosphorus 3.6 mg/dl (2.5-4.9); Potassium 3.5 mmol/L (3.5-5.1)
--- NOTE | 2024-01-20 08:46 | Electrocardiogram Report ---
Test Reason : Blood Pressure : */* mmHG Vent. Rate : 53 BPM Atrial Rate : 53 BPM P-R Int : 168 ms QRS Dur : 94 ms QT Int : 502 ms P-R-T Axes : 35 -35 -48 degrees QTcB Int : 471 ms Sinus bradycardia Left axis deviation Incomplete right bundle branch block Diffuse Nonspecific T wave abnormality Prolonged QT Abnormal ECG When compared with ECG of 19-Jan-2024 15:48, No significant change Confirmed by Tyler Candelario ([id number]) on 01/20/2024 8:45:51 AM Referred By: REFERRED SELF Confirmed By: Tyler Candelario
[2024-01-20] MEDS ORDERED: REGADENOSON 0.4 MG/5 ML SYR IV ONE (11:45)
--- NOTE | 2024-01-20 14:13 | Hospitalist Progress Note ---
Date of Service January 20, 2024 Assessment & Plan (1) Chest pain: Plan: 68-year-old male with past medical history significant for hypertension, symptomatic PVCs, history of prostate cancer comes in because of chest pressure. Patient noticed chest pressure while he was playing golf around 5 PM. No radiation. No shortness. No headache. No dizziness. No blurred vision. No runny nose or sore throat. No cough. No nausea. No abdominal pain. Normal bowel and bladder movements. Patient says he has PVCs and currently he having them and feeling them. Still have some pressure in the chest. He was weird feeling in the chest for last couple of days . Patient states he ambulates 2 to 5 miles every day. Currently hemodynamics are stable. Chest pain Initial workup unremarkable Troponins trended from 12.8 -20.6-15.4 EKG NSR echo with EF of 55 to 60%, mild left ventricular hypertrophy, no wall motion abnormalities, mild mitral regurgitation and grade 1 diastolic dysfunction AM hemoglobin A1c and lipid panel pending cardiology consulted, appreciate recs. Recommended or stated the following: -Nuclear stress test in the a.m. -Patient made n.p.o. after midnight in case further procedure needed based on results. continue to monitor on telemetry Symptomatic PVCs On metoprolol patient follows with cardiology Continue to monitor on telemetry Hypertension On losartan, metoprolol and amlodipine per cardiology, add hydrochlorothiazide continue to monitor Hypothyroidism On Synthroid, continue History of prostate cancer S/p SBRT Diet: HH, NPO after midnight DVT prophylaxis: SCDs Dispo: Home once medically stable Admission and Anticipated Discharge Date Admission Date: January 19, 2024 Physical Exam Physical Exam: General: Alert, oriented. No acute distress Skin: No noted rashes or bruises Psych: Appropriate mood and affect Neuro: No gross deficits HEENT: NC/AT Chest: Nontender to palpation. CV: RRR Resp: Breath sounds clear bilaterally, no increased effort of breathing. Abdomen: Soft, nontender, nondistended. Extremities: No edema in lower extremities bilaterally. Results & Data Results & Data Vital Signs (Past 12 Hours) Vital Signs Temp Pulse Pulse Pulse Resp BP Pulse Ox 01/20/24 12:10 36.2 C L 52 L 14 132/76 97 01/20/24 07:56 36.7 C 49 L 18 145/75 H 94 01/20/24 07:00 51 L 01/20/24 04:01 36.3 C L 54 L 16 131/77 96 O2 Del Method 01/20/24 12:10 Room Air 01/20/24 07:56 Room Air 01/20/24 07:00 01/20/24 04:01 Room Air (1) Chest pain Chest pain type: unspecified Qualified Code(s): R07.9 - Chest pain, unspecified
--- NOTE | 2024-01-20 14:18 | Cardiology Progress Note ---
Date of Service January 20, 2024 Assessment & Plan (1) Atypical chest pain: (2) Elevated troponin I level: (3) Uncontrolled hypertension: (4) PVC (premature ventricular contraction): Plan 68-year-old male presents with palpitations and chest discomfort with atypical features. No ischemic ECG changes or regional wall motion abnormality per echocardiogram. Minimally elevated high-sensitivity troponin which has returned to normal range. No recurrent symptoms overnight. Blood pressure improved with addition of hydrochlorothiazide. Lexiscan nuclear stress test today. Further recommendation pending review. Nirmal Vila DO, [facility] Addendum: Lexiscan nuclear stress test negative for inducible ischemia. Patient may be discharge from a cardiovascular perspective. Routine cardiology follow- up as scheduled. Admission and Anticipated Discharge Date Admission Date: January 19, 2024 Subjective Patient seen and examined at the bedside. Feeling better today. No recurrent chest discomfort overnight. Hydrochlorothiazide added with improvement of blood pressure control. Telemetry reveals sinus rhythm and sinus bradycardia. Occasional PVCs. Review of Systems Review of Systems: All systems reviewed & are unremarkable except as noted in Subjective Physical Exam Constitutional: well nourished; no acute distress Respiratory: no respiratory distress, no labored breathing and no retractions Auscultation: no crackles, no rales, no rhonchi and no wheezes Cardiovascular: Rate/Rhythm: regular rate and regular rhythm Heart Sounds: normal S1 and normal S2; no murmur Gastrointestinal (Abdomen): Inspection/Auscultation: abdomen normal to inspection; abdomen not distended Percussion/Palpation: abdomen soft; abdomen nontender, no guarding and abdomen not rigid Neurologic: CN's II-XI intact bilaterally and moves all extremities; no focal motor deficits Results & Data Vital Signs (Past 12 Hours) Vital Signs Temp Pulse Pulse Pulse Resp BP Pulse Ox 01/20/24 12:10 36.2 C L 52 L 14 132/76 97 01/20/24 07:56 36.7 C 49 L 18 145/75 H 94 01/20/24 07:00 51 L 01/20/24 04:01 36.3 C L 54 L 16 131/77 96 O2 Del Method 01/20/24 12:10 Room Air 01/20/24 07:56 Room Air 01/20/24 07:00 01/20/24 04:01 Room Air Laboratory Results Lipids 01/20/24 Range/Units 07:11 Triglycerides 113 (0-150) mg/dl Cholesterol 165 (0-200) mg/dl HDL Cholesterol 49 mg/dl Cholesterol/HDL Ratio 3.4 (0-5) CBC 01/20/24 Range/Units 07:11 WBC 5.56 (4.8-10.8) K/ul RBC 5.37 (4.70-6.10) M/uL Hgb 16.6 (14.0-18.0) g/dl Hct 46.6 (42.0-52.0) % Plt Count 159 (130-400) K/uL Comprehensive Metabolic Panel 01/20/24 Range/Units 07:11 Sodium 140 (136-145) mmol/L Potassium 3.5 (3.5-5.1) mmol/L Chloride 105 (98-107) mmol/L Carbon Dioxide 27 (21-32) mmol/L BUN 22 (6-23) mg/dl Creatinine 0.94 (0.6-1.4) mg/dl Glucose 95 (70-99(Fasting)) mg/dl Calcium 9.0 (8.6-10.3) mg/dl Intake and Output 01/19/24 01/20/24 01/20/24 22:59 06:59 14:59 Intake Total 135 / 485 350 / 485 0 / 0 Balance 135 / 485 350 / 485 0 / 0 Intake: Oral 135 / 485 350 / 485 0 / 0 Other: Other Intake Source npo # Unmeasured Voids 6 Weight 81.5 kg Weight Measurement Method Standing Scale
--- NOTE | 2024-01-20 16:35 | Myocardial Perfusion Study ---
Date of Service January 20, 2024 Myocardial Perfusion Study [facility] Myocardial Perfusion Study Report Indication: Chest pain, mildly elevated high-sensitivity troponin, hypertension. Complications: None Symptoms: Chest heaviness, headache Patient performed stress test according to Lexiscan protocol for 4 minutes and 1 second. Achieving work level of 1.0 METS. Resting heart rate of 58 bpm preet to a maximum heart rate of 85 bpm. This value represents 56% of the maximal, age-predicted heart rate. The resting blood pressure of 151/93 mmHg, preet to a maximum blood pressure of 163/84 mmHg. Stress test was stopped due to end of protocol. Normal heart rate and blood pressure response to Lexiscan infusion. Resting ECG: Sinus rhythm, diffuse nonspecific ST-T wave abnormality. Stress ECG: No significant ST depression. Nuclear imaging: For the stress portion of the study 31 mCi of technetium 99m Cardiolite was injected at 15 10 PM on 01/19/2024. 30 minutes following the injection, imaging of the heart was performed in multiple projections. For the rest portion of the study 11 mCi of Tc 99m Cardiolite was injected at 13 10 PM. 1 hour following the injection, imaging of the heart was performed in the same projections. Raw data: Significant gallbladder uptake of isotope tracer noted. Extracardiac uptake can be seen adjacent to the inferior wall on perfusion imaging. Mild reduction of counts in the inferior wall likely due to ramp filter artifact. Right ventricle: Not well-visualized. Resting images: Probable normal perfusion with mild reduction of counts involving the inferior wall adjacent to area of extracardiac tracer uptake. Finding most likely due to ramp filter artifact. Stress imaging: Mildly reduced tracer uptake of involving the inferior wall with small area of extracardiac tracer uptake noted. The inferior defect most likely due to ramp filter artifact. Otherwise, normal perfusion. There are no reversible defects to suggest ischemia. Gated SPECT imaging: Normal wall motion and myocardial thickening. The calculated left ventricular ejection fraction is 54%. Conclusion: 1. Lexiscan nuclear myocardial perfusion imaging study is negative for inducible ischemia, or myocardial scar. 2. Normal gated SPECT imaging with calculated left ventricular ejection fraction 54%. Nirmal Vila DO, [facility]
--- NOTE | 2024-01-20 17:27 | Discharge Summary ---
Discharge Summary Date of Service January 20, 2024 Principal Dx & Hospital Course #1 = Principal Diagnosis (1) Chest pain: 68-year-old male with past medical history significant for hypertension, symptomatic PVCs, history of prostate cancer presenting with chest pressure. Chest pain Initial workup unremarkable Troponins trended from 12.8 -20.6-15.4 EKG NSR echo with EF of 55 to 60%, mild left ventricular hypertrophy, no wall motion abnormalities, mild mitral regurgitation and grade 1 diastolic dysfunction hemoglobin A1c normal, lipid panel normal cardiology consulted, appreciate recs. Recommended or stated the following: -Nuclear stress test- completed on 01/20/2024 and was negative - continue with hydrochlorothiazide for hypertension in addition to losartan metoprolol and amlodipine -Routine cardiology follow-up after discharge please ensure cardiology follow-up after discharge Symptomatic PVCs On metoprolol patient follows with cardiology please ensure cardiology follow-up after discharge Hypertension On losartan, metoprolol and amlodipine per cardiology, add hydrochlorothiazide. patient also discharged with hydrochlorothiazide to add to regimen continue to monitor blood pressure after discharge Hypothyroidism On Synthroid, continue History of prostate cancer S/p SBRT Notes For Next Care Provider nuclear stress test negative please ensure follow-up with cardiology after discharge Medication Changes From Visit hydrochlorothiazide 25 mg daily Admission HPI Per Admitting Provider 68-year-old male with past medical history significant for hypertension, symptomatic PVCs, history of prostate cancer comes in because of chest pressure. Patient noticed chest pressure while he was playing golf around 5 PM. No radiation. No shortness. No headache. No dizziness. No blurred vision. No runny nose or sore throat. No cough. No nausea. No abdominal pain. Normal bowel and bladder movements. Patient says he has PVCs and currently he having them and feeling them. Still have some pressure in the chest. He was weird feeling in the chest for last couple of days . Patient states he ambulates 2 to 5 miles every day. Currently hemodynamics are okay. Past medical history. As mentioned above Past surgical history. Colonoscopy. Bilateral cataracts removed. Bilateral in guinal hernia repair. Social history. . No smoking. No alcohol use. No drug use. Family history. Mother had lung cancer. Father had COPD. Paternal grandmother had coronary disease. Liver disease. Maternal grandfather had heart attack. Kidney cancer. Maternal grandmother had heart failure. Admission Exam Per Admitting Provider General- Not in distress Head- atraumatic Eyes- PERRL. ENT- oropharynx clear Neck- supple, no JVD. Lungs- clear to auscultation no wheezing or crackles Heart- regular rate and rhythm; no murmur, no gallop. Abdomen- normal bowel sounds, soft, nontender, no distension Extremities- no pretibial edema, no erythema seen Neuro- alert, oriented PERRL, no facial palsy; no dysarthria; moves extremities Discharge Exam General: Alert, oriented. No acute distress Psych: Appropriate mood and affect Neuro: No gross deficits HEENT: NC/A Chest: Nontender to palpation. CV: RRR Resp: Breath sounds clear bilaterally, no increased effort of breathing. Abdomen: Soft, nontender, nondistended Extremities: No edema in lower extremities bilaterally. Updated Medication List Medication Instructions Recorded Confirmed Type Men's 50 Plus Multivitamin 1 tab PO HS 01/19/24 01/19/24 History amlodipine 5 mg tablet 5 mg PO BID 01/19/24 01/19/24 History levothyroxine 75 mcg tablet 75 mcg PO QAM 01/19/24 01/19/24 History losartan 100 mg tablet 100 mg PO QAM 01/19/24 01/19/24 History metoprolol succinate 100 mg 100 mg PO BID 01/19/24 01/19/24 History tablet,extended release 24 hr hydrochlorothiazide 25 mg tablet 25 mg PO QAM #30 tabs 01/20/24 Rx Hospital Stay Data Consultations 01/19/24 00:55 ED Decision to Admit Stat 01/19/24 08:00 Consult Cardiology Routine Diagnostic Imagining Performed Chest X-Ray 01/18/24 23:47 XR chest 2V PA/lateral CLINICAL HISTORY: Chest pain, nonspecific TECHNIQUE: 2 views of the chest were obtained. Comparison: Comparison is made to chest radiograph 04/08/2022 FINDINGS: No lines and tubes are seen. The cardiomediastinal silhouette is normal. The lungs are clear. No evidence of pleural effusion or pneumothorax. IMPRESSION: No acute chest disease. ACT 112: Negative or not required by law. Electronically signed by: Gildardo Ortiz M.D. 01/19/2024 6:50 AM Pending Results Patient Have Any Pending Studies at Discharge: No Discharge Instructions Given to Patient (Per Discharging Provider) Jacques, You were seen by cardiology and had a nuclear stress test completed. They are recommending discharge home. Cardiology also recommended the addition of the medication hydrochlorothiazide to help keep your blood pressure down. Please continue to take at home along with your other medication as prescribed. 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 Please also keep close follow up with your primary care provider after discharge. Please do not hesitate to come back to the emergency room if your symptoms worsen or return. It was a pleasure taking care of you while you were here. Total Time Total Time Spent Total Time Spent (In Minutes): 65
== END 2024-01-20 18:31 | disposition home or self-care (01) ==
LOC: 2W 23:38 → ED 23:38 → 2W 01-19 05:28